=== PATIENT | female | born 1965 | race Hispanic/Latino ===

== ENCOUNTER 2019-01-14 16:53 | Inpatient (IN) | payer OTHER | END 2019-01-19 17:10 | disposition home or self-care (01) | LOC: EDH 16:53 → EDHIP 18:45 → 3DH 20:23 | DX: A41.9 Sepsis, unspecified organism (principal); J18.9 Pneumonia, unspecified organism; J96.00 Acute respiratory failure, unspecified whether with hypoxia or hypercapnia; J96.01 Acute respiratory failure with hypoxia; E87.3 Alkalosis; R09.02 Hypoxemia; E11.65 Type 2 diabetes mellitus with hyperglycemia; Z79.4 Long term (current) use of insulin; I10 Essential (primary) hypertension ==

== ENCOUNTER → 2022-05-20 | Outpatient (CLI) | payer OTHER ==
[~2022-05-20] MED LIST: CHOL500045 PO; LISI20TA24 PO; METF-446 PO; SIMV10TA97 PO
== END | disposition home or self-care (01) ==
LOC: RAH 13:23
PROVIDERS: ATTEND Internal Medicine Cardiovascular Disease
DX: Z13.6 Encounter for screening for cardiovascular disorders (principal); I51.5 Myocardial degeneration
CPT/HCPCS: 75571

== ENCOUNTER → 2022-10-18 | Outpatient (CLI) | payer MEDICARE ==
[~2022-10-18] MED LIST changes: +ACET325T51 PO; +ASPI-1197 PO; +CALC-866 PO; -CHOL500045 PO; +FAMO20TA8 PO; +FURO40TA7 PO; +GUAI5SYR PO; -LISI20TA24 PO; +METO25PO2 MC; +ONDA4TAB10 PO; +POLY17PO4 PO; +POTA-192 PO; +QUET25TA PO; +ROSU20TA31 PO; +SACU1TAB PO; +SERT-438 PO; -SIMV10TA97 PO; +SPIR25TA6 PO
[2022-10-18 13:08] LABS: CREATININE 0.7 mg/dL (0.5-1.5); MAGNESIUM 1.9 mg/dL (1.80-2.40); POTASSIUM 4.2 mmol/L (3.5-5.1)
== END | disposition home or self-care (01) ==
LOC: LAB 08:22
PROVIDERS: ATTEND Internal Medicine Cardiovascular Disease
DX: I11.0 Hypertensive heart disease with heart failure (principal)
CPT/HCPCS: 36415; 80048; 83735; 83880

== ENCOUNTER → 2022-12-29 | Outpatient (CLI) | payer MEDICARE ==
[2022-12-29 12:25] LABS: ALBUMIN 3.4 g/dL (3.5-5.0); CREATININE 0.6 mg/dL (0.5-1.5); POTASSIUM 4.3 mmol/L (3.5-5.1); TOTAL PROTEIN, SERUM 7.2 g/dL (6.0-8.3)
== END | disposition home or self-care (01) ==
LOC: LAB 10:44
PROVIDERS: ATTEND Internal Medicine Cardiovascular Disease
DX: I10 Essential (primary) hypertension (principal)
CPT/HCPCS: 36415; 80053; 80061; 83880

== ENCOUNTER → 2023-05-23 | Outpatient (CLI) | payer MEDICARE ==
[~2023-05-23] MED LIST changes: -ROSU20TA31 PO; +ROSU20TA73 PO
[2023-05-23 12:36] LABS: CREATININE 0.6 mg/dL (0.5-1.5)
== END | disposition home or self-care (01) ==
LOC: LAB 08:43
PROVIDERS: ATTEND Internal Medicine Cardiovascular Disease
DX: I11.0 Hypertensive heart disease with heart failure (principal); I50.32 Chronic diastolic (congestive) heart failure
CPT/HCPCS: 36415; 80048; 83880

== ENCOUNTER → 2023-08-22 | Outpatient (CLI) | payer MEDICARE ==
[2023-08-22 12:37] LABS: ALBUMIN 3.3 g/dL (3.5-5.0); BILIRUBIN,TOTAL 0.6 mg/dL (0.2-1.0); CREATININE 0.6 mg/dL (0.5-1.5); TOTAL PROTEIN, SERUM 7.3 g/dL (6.0-8.3)
== END | disposition home or self-care (01) ==
LOC: LAB 09:37
PROVIDERS: ATTEND Internal Medicine Cardiovascular Disease
DX: I25.810 Atherosclerosis of coronary artery bypass graft(s) without angina pectoris (principal); I10 Essential (primary) hypertension; E78.5 Hyperlipidemia, unspecified; Z79.899 Other long term (current) drug therapy
CPT/HCPCS: 36415; 80053; 80061; 83880

== ENCOUNTER → 2024-03-27 | Outpatient (CLI) | payer OTHER ==
[~2024-03-27] MED LIST changes: +ONDA-243 PO; -ONDA4TAB10 PO
[2024-03-27 12:04] LABS: BASOPHILS # (AUTO) 0.05 K/uL (0.00-0.20); BASOPHILS % (AUTO) 0.6 % (0.0-5.0); EOSINOPHILS # (AUTO) 0.24 K/uL (0.00-0.70); EOSINOPHILS % (AUTO) 2.9 % (0.0-8.0); HEMATOCRIT 41.8 % (36-48); IMMATURE GRANULOCYTE ABSOLUTE 0.02 K/uL (0-1); LYMPHOCYTES # (AUTO) 2.7 K/uL (1.0-4.8); LYMPHOCYTES % (AUTO) 32.6 % (21.0-51.0); MEAN CORPUSCULAR HEMOGLOBIN 31.4 pg (27.0-33.0); MEAN CORPUSCULAR HGB CONC 33.7 g/dL (32.0-36.0); MEAN CORPUSCULAR VOLUME 93.1 fL (79-99); MONOCYTES # (AUTO) 0.6 K/uL (0.1-1.0); MONOCYTES % (AUTO) 7.8 % (3.0-13.0); NEUTROPHILS # (AUTO) 4.6 K/uL (1.8-7.7); NEUTROPHILS % (AUTO) 55.9 % (40.0-77.0); PLATELET COUNT (AUTO) 251 K/uL (130-400); RED BLOOD CELL COUNT(AUTO) 4.49 MIL/uL (4.00-5.50); RED CELL DISTRIBUTION WIDTH 12.6 % (11.0-15.5); WHITE BLOOD COUNT (AUTO) 8.2 K/uL (4.8-10.8)
[2024-03-27 13:16] LABS: BILIRUBIN,TOTAL 0.2 mg/dL (0.2-1.0); CREATININE 0.6 mg/dL (0.5-1.0); MAGNESIUM 1.9 mg/dL (1.80-2.40); POTASSIUM 4.3 mmol/L (3.5-5.1); TOTAL PROTEIN, SERUM 6.9 g/dL (6.0-8.3)
== END | disposition home or self-care (01) ==
LOC: LAB 10:00
PROVIDERS: ATTEND Internal Medicine Cardiovascular Disease
DX: I50.22 Chronic systolic (congestive) heart failure (principal); I65.23 Occlusion and stenosis of bilateral carotid arteries
CPT/HCPCS: 36415; 80053; 80061; 83735; 83880; 85025

== ENCOUNTER → 2024-07-10 | Outpatient (CLI) | payer OTHER ==
[~2024-07-10] MED LIST changes: -GUAI5SYR PO; -ROSU20TA73 PO; +ROSU20TA98 PO
[2024-07-10 12:45] LABS: CREATININE 0.7 mg/dL (0.5-1.0); MAGNESIUM 2.1 mg/dL (1.80-2.40); POTASSIUM 4.4 mmol/L (3.5-5.1)
== END | disposition home or self-care (01) ==
LOC: LAB 09:50
PROVIDERS: ATTEND Internal Medicine Cardiovascular Disease
DX: I25.810 Atherosclerosis of coronary artery bypass graft(s) without angina pectoris (principal); R60.9 Edema, unspecified; G47.33 Obstructive sleep apnea (adult) (pediatric); R20.2 Paresthesia of skin
CPT/HCPCS: 36415; 80048; 83735; 83880

== ENCOUNTER → 2024-08-23 | Outpatient (CLI) | payer OTHER ==
[~2024-08-23] MED LIST changes: +ACET-3859 PO; -ACET325T51 PO
[2024-08-23 12:50] LABS: CREATININE 0.6 mg/dL (0.5-1.0); POTASSIUM 4.6 mmol/L (3.5-5.1)
== END | disposition home or self-care (01) ==
LOC: LAB 09:26
PROVIDERS: ATTEND Internal Medicine Cardiovascular Disease
DX: I25.810 Atherosclerosis of coronary artery bypass graft(s) without angina pectoris (principal); G47.33 Obstructive sleep apnea (adult) (pediatric); R60.9 Edema, unspecified; R20.2 Paresthesia of skin
CPT/HCPCS: 36415; 80048; 83735; 83880

== ENCOUNTER → 2024-11-14 | Outpatient (CLI) | payer OTHER | END | disposition home or self-care (01) | LOC: LAB 09:26 | PROVIDERS: ATTEND Internal Medicine Cardiovascular Disease | DX: E78.2 Mixed hyperlipidemia (principal); I25.10 Atherosclerotic heart disease of native coronary artery without angina pectoris; R60.9 Edema, unspecified; I65.23 Occlusion and stenosis of bilateral carotid arteries | CPT/HCPCS: 36415; 83880 ==

== ENCOUNTER 2024-12-18 10:31 | Day surgery (SDC) | payer OTHER ==
[2024-12-18] VITALS (11 sets, daily range): BP systolic 100–143; BP diastolic 56–72; PULSE 66–78; RESP 16–18; TEMP 97–97.3
[~2024-12-18] VITALS: Ht 154.9 cm; Wt 92.5 kg
[2024-12-18] MEDS: 0.9%NACL 1000ML 1,000 ML IV ONE (11:46)
[2024-12-18] MEDS ORDERED: SACU1TAB PO (12:09)
[2024-12-18] MEDS ORDERED: DOCU100C33 PO (12:09)
[2024-12-18] MEDS ORDERED: VIT1CAPS46 PO (12:09)
[2024-12-18] MEDS ORDERED: EZET10TA48 PO (12:09)
[2024-12-18] MEDS ORDERED: EMPA25TA PO (12:09)
[2024-12-18] MEDS ORDERED: MAGN420T PO (12:09)
[2024-12-18] MEDS ORDERED: SEMA2PEN SQ (12:09)
--- NOTE | 2024-12-18 12:39 | EKG ---
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
[2024-12-18 12:44] LABS: BASOPHILS # (AUTO) 0.03 K/uL (0.00-0.20); BASOPHILS % (AUTO) 0.5 % (0.0-5.0); EOSINOPHILS # (AUTO) 0.08 K/uL (0.00-0.70); EOSINOPHILS % (AUTO) 1.2 % (0.0-8.0); HEMATOCRIT 38.1 % (36-48); IMMATURE GRANULOCYTE ABSOLUTE 0.02 K/uL (0-1); LYMPHOCYTES # (AUTO) 1.9 K/uL (1.0-4.8); LYMPHOCYTES % (AUTO) 29.2 % (21.0-51.0); MEAN CORPUSCULAR HEMOGLOBIN 31.7 pg (27.0-33.0); MEAN CORPUSCULAR HGB CONC 34.4 g/dL (32.0-36.0); MEAN CORPUSCULAR VOLUME 92.3 fL (79-99); MONOCYTES # (AUTO) 0.5 K/uL (0.1-1.0); MONOCYTES % (AUTO) 7.7 % (3.0-13.0); NEUTROPHILS % (AUTO) 61.1 % (40.0-77.0); PLATELET COUNT (AUTO) 245 K/uL (130-400); RED BLOOD CELL COUNT(AUTO) 4.13 MIL/uL (4.00-5.50); RED CELL DISTRIBUTION WIDTH 12.3 % (11.0-15.5); WHITE BLOOD COUNT (AUTO) 6.6 K/uL (4.8-10.8)
[2024-12-18 12:53] LABS: CREATININE 0.8 mg/dL (0.5-1.0); POTASSIUM 3.7 mmol/L (3.5-5.1)
[2024-12-18 12:58] LABS: BILIRUBIN,TOTAL 0.4 mg/dL (0.2-1.0); TOTAL PROTEIN, SERUM 6.7 g/dL (6.0-8.3)
[2024-12-18] MEDS ORDERED: proPOFol 10 MG/ML 20ML VIAL IV ONE (14:05)
[2024-12-18] MEDS ORDERED: LIDOCAINE PF 100MG/5ML (2%) SYRINGE 5ML ONE (14:05)
== END 2024-12-18 15:49 | disposition home or self-care (01) ==
LOC: ENDO 10:31
PROVIDERS: ATTEND Internal Medicine Gastroenterology
DX: Z12.11 Encounter for screening for malignant neoplasm of colon (principal); K29.50 Unspecified chronic gastritis without bleeding; D12.2 Benign neoplasm of ascending colon; K64.0 First degree hemorrhoids; K63.5 Polyp of colon; K21.9 Gastro-esophageal reflux disease without esophagitis; K21.00 Gastro-esophageal reflux disease with esophagitis, without bleeding; E11.9 Type 2 diabetes mellitus without complications; R12 Heartburn; E78.5 Hyperlipidemia, unspecified; I25.10 Atherosclerotic heart disease of native coronary artery without angina pectoris; I11.0 Hypertensive heart disease with heart failure; I50.9 Heart failure, unspecified; Z79.899 Other long term (current) drug therapy; Z79.84 Long term (current) use of oral hypoglycemic drugs; Z86.16 Personal history of COVID-19; Z98.890 Other specified postprocedural states; Z83.3 Family history of diabetes mellitus; Z82.49 Family history of ischemic heart disease and other diseases of the circulatory system; Z83.438 Family history of other disorder of lipoprotein metabolism and other lipidemia; Z82.3 Family history of stroke; Z87.891 Personal history of nicotine dependence
CPT/HCPCS: 45385; 43239; 93005; 80053; 85025; 82948; 36415; 88305; 88312; J7030 ×2; J2003; J2704; A4620; A4215 ×2; A4223; A4222; A4221; A4663; A4606; J3490

== ENCOUNTER 2025-06-18 07:02 | Day surgery (SDC) | payer OTHER ==
[2025-06-14 11:52] LABS: IMMATURE GRANULOCYTE ABSOLUTE 0.03 K/uL (0-1); NUCLEATED RED BLOOD CELLS 0.0 % (0.0-0.19); PLATELET COUNT (AUTO) 289 K/uL (130-400); RED BLOOD CELL COUNT(AUTO) 4.49 MIL/uL (4.00-5.50); RED CELL DISTRIBUTION WIDTH 12.5 % (11.0-15.5); WHITE BLOOD COUNT (AUTO) 7.8 K/uL (4.8-10.8)
[2025-06-14 11:56] LABS: APPEARANCE,URINE CLEAR (CLEAR); GLUCOSE, URINE (UA) >=1000 mg/dL (NEGATIVE); LEUKOCYTE ESTERASE ,URINE NEGATIVE Leu/uL (NEGATIVE); NITRATE,URINE NEGATIVE (NEGATIVE); OCCULT BLOOD,URINE +- (TRACE) (NEGATIVE)
[2025-06-14 11:59] LABS: ADD UA MICROSCOPIC YES
[2025-06-14 11:59] LABS: CREATININE 0.7 mg/dL (0.5-1.0); GLOMERULAR FILTR. RATE CALC 98.0 mL/min (>90); GLUCOSE,RANDOM 206.0 mg/dL (70-105); SODIUM SERUM 137.0 mmol/L (136-145); UREA NITROGEN, BLOOD 26.0 mg/dL (7-18)
[2025-06-14 12:03] LABS: SQUAMOUS EPITHELIAL CELL,UR RARE /HPF (0-2)
[2025-06-14 12:03] LABS: INR <= 0.93 (0.85-1.15)
[2025-06-14 12:12] VITALS: BP 181/86; PULSE 79; RESP 18; TEMP 97.7
--- NOTE | 2025-06-14 12:56 | HMCIMG ---
CHEST 1VW REASON: PRE OP COMPARISON: Prior study from 04/18/2024 is available. FINDINGS: Single view of the chest was obtained. Lungs are clear. Heart is normal in size with median sternotomy. There is uncoiling atherosclerotic change of thoracic aorta.. There is no pulmonary vascular congestion. Mediastinum and bony thorax appear unremarkable. IMPRESSION: 1. Status post median sternotomy 2. No evidence of airspace consolidation or pulmonary venous congestion.
--- NOTE | 2025-06-14 16:04 | EKG ---
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
[2025-06-18] VITALS (7 sets, daily range): BP systolic 119–146; BP diastolic 60–76; PULSE 66–80; RESP 11–15; TEMP 97.2
[~2025-06-18] VITALS: Ht 154.9 cm; Wt 91.8 kg
[~2025-06-18 07:02] MED LIST changes: -ACET-3859 PO; -ASPI-1197 PO; -CALC-866 PO; +CALCIUM PLUS VIT D PO; +EMPA25TA PO; +EVOL140S2 SQ; +EZET10TA80 PO; -FAMO20TA8 PO; +FURO40TA5 PO; -FURO40TA7 PO; +GABA-529 PO; +MAGN400T51 PO; +METO-408 PO; -METO25PO2 MC; -ONDA-243 PO; -POLY17PO4 PO; -POTA-192 PO; -QUET25TA PO; +SEMA2PEN SQ; +SENN-304 PO; -SERT-438 PO; +SERT-439 PO; +cinnamon PO; +garlique PO
[2025-06-18] MEDS: 0.9%NACL 1000ML 1,000 ML IV SCH (08:12)
[2025-06-18] MEDS ORDERED: HEParin-NS 1,000 UNIT/500 ML 1,000 ML IV ONE (08:45)
[2025-06-18] MEDS ORDERED: SODIUM BICARB 50MEQ 50ML VIAL 50 ML ONE (08:45)
[2025-06-18] MEDS ORDERED: NITROGLYCERIN 50MG VIAL ONE (08:45)
[2025-06-18] MEDS ORDERED: IOHEXOL-350 50ML VIAL IV ONE (08:45)
[2025-06-18] MEDS ORDERED: IOHEXOL 350 MG/ML 100ML INFUS..BTL IV ONE (08:45)
[2025-06-18] MEDS ORDERED: LIDOCAINE HCL 400MG/20ML VIAL ONE (08:45)
[2025-06-18] MEDS ORDERED: MIDAZOLAM HCL 1 MG/ML 2ML VIAL ONE (08:55)
[2025-06-18] MEDS ORDERED: GLUCAGON 1MG KIT 1 MG ML IM PRN (10:00)
[2025-06-18] MEDS ORDERED: DEXTROSE 50%-WATER 50 ML DISP.SYRIN IV PRN (10:00)
--- NOTE | 2025-06-18 10:26 | PRN ---
LEFT HEART CATHETERIZATION, LEFT VENTRICULAR CINE ANGIOGRAM, CORONARY ARTERIOGRAM, SAPHENOUS VEIN GRAFT ANGIOGRAM, INTERNAL MAMMARY ANGIOGRAM INDICATION: HIGH-RISK NUCLEAR STRESS TEST WITH ANGINA AND HISTORY OF CORONARY BYPASS TECHNIQUE: The patient was brought to the lab in a fasting state after informed consent and sedated with 1 mg Versed and 50 mcg fentanyl. Under local anesthesia with 1% lidocaine using micropuncture technique with fluoroscopic and ultrasound guidance a right common femoral artery was punctured anteriorly and a six [place] sheath was inserted. Left heart catheterization was carried out with a six [place] angled pigtail and pressures were measured, then left ventricular cine angiography was performed in OSWALD projection . A pullback recording was obtained and an exchange was made for six [place] 4 cm left Bertha which was used to engage the left main coronary and obtain left coronary angiograms in multiple projections. An exchange was made for a six [place] 4 cm right Bertha which was used to engage the right coronary and obtain right coronary angiograms in multiple projections, then the vein grafts were engaged and angiography demonstrated them all to be occluded. The left subclavian was then engaged and with a exchange length J wire we exchanged for a six [place] INT with which we engaged the internal mammary and obtained internal mammary angiograms in multiple projections. At the conclusion of the procedure Perclose closure was accomplished with excellent hemostasis and no complications. Results: Hemodynamics: LVEDP was 18 before angiography in 20 after. LV systolic pressure was 153 and a ortic root pressure was 150/65, mean 100. Ventriculography: Left ventricular cine angiography demonstrated mild global hypokinesia which was more apparent in the mid inferior wall. The mitral valve was competent. The EF is 40% by planimetry. Angiography: The right coronary supplies the posterior descending and a posterolateral branch and is notable for a calcified segmental 95% stenosis before the 1st right ventricular marginal. At the acute margin there is an additional segmental calcified 90% stenosis which compromises the PDA and posterolateral as well as the AV pradip branch. The vein graft to the right coronary is occluded. The left main is free of high-grade disease. The left anterior descending is notable for calcified 60% proximal stenosis which does not appear significantly obstructive. The 1st diagonal is narrowed by 70% at its origin in his only about a mm in diameter; previous vein graft to that vessel is not apparent on angiography but a stubbed this identified on the aorta. In the midportion of the LAD there is segmental calcified 80% stenosis proximal to the insertion of the internal mammary. The internal mammary supplies the mid and distal LAD and is free of disease. The circumflex supplies a tiny 1st obtuse marginal then a large 2nd obtuse marginal that bifurcates as it courses over the lateral wall. The anterior branch of that 2nd obtuse marginal is notable for calcified eccentric disease in the ostium of the more posterior branch of the 2nd obtuse marginal is calcified and narrowed by 90%. In the midportion of that vessel there is 95% stenosis were as there appears to have been a previous vein graft insertion. Distally the circumflex supplies two small posterolateral branches and there was diffuse calcified segmental disease that spans from the common circumflex into both of those distal branches, which are small in diameter. Conclusions: Severe three-vessel coronary disease with all three saphenous vein grafts occluded. Internal mammary is patent. Mild systolic and diastolic heart failure. JACKIE NAM MD Jun 18, 2025 10:26
--- NOTE | 2025-06-18 12:11 | NUR ---
Full and complete discharge instructions given to Patient and Family both verbally and in writing. Explained Angiogram procedure precautions and follow up. Right groin site clean dry and intact. No evidence of bleeding, bruising or hematoma. Pedal pulses intact to BLE's. All questions answered. PIV removed with catheter tip intact. Son at bedside appearing supportive. Addendum: 06/18/25 at 1249 by SAMANTHA PAREDES RN RN Discharged home. W/C to POV with Son.
== END 2025-06-18 12:50 | disposition home or self-care (01) ==
LOC: DAH 07:02
PROVIDERS: ATTEND Internal Medicine Cardiovascular Disease
DX: R94.39 Abnormal result of other cardiovascular function study (principal); I25.118 Atherosclerotic heart disease of native coronary artery with other forms of angina pectoris; I11.0 Hypertensive heart disease with heart failure; I50.32 Chronic diastolic (congestive) heart failure; E78.5 Hyperlipidemia, unspecified; E11.9 Type 2 diabetes mellitus without complications; Z79.84 Long term (current) use of oral hypoglycemic drugs; Z79.899 Other long term (current) drug therapy; Z98.890 Other specified postprocedural states
CPT/HCPCS: 80048; 83880; 85025; 85610; 85730; 81001; 36415; 71045; 93005; 93459; 99156; 99157; 82948 ×2; C1769; C1894 ×2; C1760; Q9965 ×2; J3010; J3490 ×3; J2250; J1644; Q9967 ×2; A4215; A4222; A4221; A4663; A4216; A4606; A4223 ×3

== ENCOUNTER 2025-07-08 16:31 | Observation (INO) | payer OTHER ==
[~2025-07-08] VITALS: Ht 154.9 cm; Wt 90.6 kg
[~2025-07-08 16:31] MED LIST changes: +ASPI-1443 PO; +CETI10TA87 PO; +FLUT16H NASAL; +PRAS10TA9 PO
--- NOTE | 2025-07-08 16:42 | NUR ---
TRAUMA LEVEL 2 ACTIVATED. SEE PAPER DOCUMENTATION
[2025-07-08 17:11] LABS: IMMATURE GRANULOCYTE ABSOLUTE 0.03 K/uL (0-1); NUCLEATED RED BLOOD CELLS 0.0 % (0.0-0.19); PLATELET COUNT (AUTO) 226 K/uL (130-400); RED BLOOD CELL COUNT(AUTO) 4.07 MIL/uL (4.00-5.50); RED CELL DISTRIBUTION WIDTH 12.8 % (11.0-15.5); WHITE BLOOD COUNT (AUTO) 7.9 K/uL (4.8-10.8)
--- NOTE | 2025-07-08 17:16 | HMCIMG ---
EXAM: CT Head Without IV contrast. CLINICAL HISTORY: FALL ON THINNERS TECHNIQUE: Axial computed tomography images of the head/brain without intravenous contrast. COMPARISON: None provided. FINDINGS: BRAIN: No evidence of acute hemorrhage. No mass lesion. No CT evidence for acute territorial infarct. No midline shift or extra-axial collections. VENTRICLES: No hydrocephalus. ORBITS: The orbits are unremarkable. SINUSES AND MASTOIDS: The paranasal sinuses and mastoid air cells are clear. BONES: No fracture. SOFT TISSUES: Unremarkable. IMPRESSION: No acute intracranial abnormality. /[place]
[2025-07-08 17:19] LABS: CREATININE 0.7 mg/dL (0.5-1.0); GLOMERULAR FILTR. RATE CALC 98.0 mL/min (>90); GLUCOSE,RANDOM 139.0 mg/dL (70-105); SODIUM SERUM 141.0 mmol/L (136-145); UREA NITROGEN, BLOOD 28.0 mg/dL (7-18)
--- NOTE | 2025-07-08 17:19 | HMCIMG ---
EXAM: CT Cervical Spine Without IV contrast. CLINICAL HISTORY: FALL ON THINNERS. TECHNIQUE: Axial computed tomography images of the cervical spine without intravenous contrast. Sagittal and coronal reformatted images were generated. COMPARISON: None provided. FINDINGS: ALIGNMENT: Bony alignment is anatomic. DEGENERATIVE CHANGES: Mild multilevel degenerative changes. SOFT TISSUES: The prevertebral soft tissues are within normal limits. BONES: No acute fracture or aggressive appearing osseous lesion. IMPRESSION: No acute cervical spine abnormality. Mild degenerative change. /[place]
[2025-07-08 17:28] LABS: ASPARTATE AMINOTRANSFERASE 19.0 U/L (10-37); TOTAL PROTEIN, SERUM 7.3 g/dL (6.0-8.3)
[2025-07-08 17:47] LABS: INR 0.94 (0.85-1.15)
--- NOTE | 2025-07-08 18:22 | EKG ---
[facility] Test Date: 2025-07-08 Test Time: 17:00:58 Pat Name: JORDAN MORAN Department: EDH Room: ED Gender: F Hand Tier: [id number] : 1965 Requested By: ANALI OVALLE Order Number: [id number] Reading MD: Dionne Gonsalez Measurements Intervals [place] Rate: 76 P: 42 [place]: 194 QRS: -15 QRSD: 105 T: 145 QT: 416 QTc: 467 Interpretive Statements Sinus rhythm LVH with secondary repolarization abnormality Inferior infarct, old Compared to ECG 07/02/2025 12:35:40 Left ventricular hypertrophy now present Early repolarization now present T-wave abnormality no longer present Myocardial infarct finding still present Electronically Signed On 07-09-2025 16:11:30 CDT by Dionne Gonsalez Please click the below link to view image of tracing.
--- NOTE | 2025-07-08 18:51 | ERN ---
ED Note History of Present Illness Stated Complaint: VASOVAGAL, NEAR SYNCOPE ,POST OP ANGIO Chief Complaint: Mechanical Fall Time Seen by MD: 16:51 Dictation: 59-year-old female with syncopal episode while in the bathroom hit her head, patient had recent angiogram and was at the hard doctor's office in clinic to get evaluated was sent over to the ER Allergies: Coded Allergies: No Known Allergies (Verified Allergy, Unknown, 01/14/19) Home Meds Reported Medications Fluticasone Propionate (Flonase Nasal Rossie) 50 Mcg/Actuation Rossie, 1 SPRAY NASAL AD PRN for CONGESTION, SPRAY 07/02/25 Cetirizine HCl (Cetirizine HCl) 10 Mg Tab.chew, 10 MG PO AM, TAB.CHEW 07/02/25 Prasugrel HCl (Prasugrel HCl) 10 Mg Tablet, 10 MG PO AM, TAB BEGIN ON 07/05/2025T 9:00AM 07/02/25 Aspirin (Aspirin EC) 81 Mg Tablet.dr, 81 MG PO AM, TAB 07/02/25 Evolocumab (Repatha Syringe) 140 Mg/Ml Syringe, 140 MG SQ T1GMMTL, SYRINGE 06/14/25 Gabapentin (Gabapentin) 100 Mg Capsule, 100 MG PO HS, CAP 06/14/25 Metoprolol Succinate (Metoprolol Succinate) 25 Mg Tab.er.24h, 25 MG PO AM, TAB 06/14/25 Sertraline HCl (Sertraline HCl) 50 Mg Tablet, 50 MG PO AM, TAB 06/14/25 [calcium plus vit d] No Conflict Check, 1 TAB PO BID 06/14/25 [cinnamon] No Conflict Check, 2000 MG PO BID 06/14/25 Magnesium Oxide (Magnesium Oxide) 400 Mg Magnesium Tablet, 400 MG PO AM, TAB 06/14/25 [garlique] No Conflict Check, 1 TAB PO AM 06/14/25 Furosemide (Furosemide) 40 Mg Tablet, 40 MG PO AM, TAB 06/14/25 Sennosides/Docusate Sodium (Stool Softener-Stimulant Lax) 8.6 Mg-50 Mg Tablet, 1 EACH PO HS, TAB 06/14/25 Empagliflozin (Jardiance) 25 Mg Tablet, 25 MG PO DAILY, TAB 12/18/24 Sacubitril/Valsartan (Entresto 24 mg-26 mg Tablet) 24 Mg-26 Mg Tablet, 1 TAB PO BID for 30 Days, #60 TAB 0 Refills 12/18/24 Spironolactone (Spironolactone) 25 Mg Tablet, 25 MG PO DAILY, TAB 12/18/24 Ezetimibe (Ezetimibe) 10 Mg Tablet, 10 MG PO DAILY, TAB 12/18/24 Semaglutide (Ozempic) 2 Mg/0.75 Ml (8 Mg/3 Ml) Pen.injctr, 1 MG SQ QWEEK for 30 Days, #3 ML 0 Refills 12/18/24 Rosuvastatin Calcium (Rosuvastatin Calcium) 20 Mg Tablet, 20 MG PO HS, TAB 09/30/22 Metformin HCl (Metformin HCl) 1,000 Mg Tablet, 1000 MG PO BIDAC, TAB 09/30/22 Past Medical History Past Medical History: CAD, CHF, Depression, Diabetes-Type II, High Cholesterol, Heart Disease, Hypertension Additional Past Medical Hx: PLEURAL EFFUSION, SLEEP APNEA, PULMONARY HYPERTENSION, MORBID OBESITY Surgical History: CABG, Surgical History Other: UMBILICAL HERNIA, LEFT HIP Review of System Dictation Constitutional: Negative for fever,chills, and weight loss Eyes: Negative for injury, pain,redness, and discharge ENT: Negative for injury,pain or swelling Cardiovascular: Negative for chest pain, palpitations, and edema Respiratory: Negative for shortness of breath, cough, and wheezing, Abdomen/GI: Negative for abdominal pain, nausea, vomiting, diarrhea, and constipation Back: Negative for injury and pain : Negative for injury, bleeding and discharge MS/Extremity: Negative for injury and deformity Skin: Negative for rash, and discoloration Neuro: Per HPI Initial Vital Sign VS Vital Signs Date Time Temp Pulse Resp B/P (MAP) Pulse Ox O2 Delivery O2 Flow Rate FiO2 07/08/25 16:45 98.2 76 16 123/59 98 Room Air 0 Physical Exam Dictation General: awake, alert, NAD Head/Face: Normocephalic, atraumatic Eyes: PERRL, EOMI, vision at baseline ENT: oral cavity clear, TMs clear, no signs of infection Neck: Trachea midline, supple, no nuchal rigidity Cardiovascular: RRR, normal S1/S2, No MRGs, no JVD Respiratory: CTAB, no respiratory distress, No rales or wheezes Abdomen: Soft, non-tender, non-distended, normal bowel sounds, no guarding or rebound. Skin: Warm, dry, normal turgor, no rash MS/Extremity: Pulses equal, no cyanosis, neurovascular intact, FROM Neuro: COAx4, GCS 15, strength 5/5, CN 2-12 intact, normal cerebellar exam, normal gait, Psych: Normal behavior, mood, and affect normal Results (Laboratory/Radiology) Laboratory/Radiology Laboratory Tests Test 07/08/25 17:05 White Blood Count 7.9 K/uL (4.8-10.8) Red Blood Count 4.07 MIL/uL (4.00-5.50) Hemoglobin 13.0 g/dL (12.0-16.0) Hematocrit 37.9 % (36-48) Mean Corpuscular Volume 93.1 fL (79-99) Mean Corpuscular Hemoglobin 31.9 pg (27.0-33.0) Mean Corpuscular Hemoglobin Concent 34.3 g/dL (32.0-36.0) Red Cell Distribution Width 12.8 % (11.0-15.5) Platelet Count 226 K/uL (130-400) Mean Platelet Volume 10.2 fL (7.5-10.5) Immature Granulocyte % (Auto) 0.4 % (0-1) Neutrophils (%) (Auto) 68.7 % (40.0-77.0) Lymphocytes (%) (Auto) 19.5 % (21.0-51.0) L Monocytes (%) (Auto) 9.5 % (3.0-13.0) Eosinophils (%) (Auto) 1.5 % (0.0-8.0) Basophils (%) (Auto) 0.4 % (0.0-5.0) Neutrophils # (Auto) 5.4 K/uL (1.8-7.7) Lymphocytes # (Auto) 1.5 K/uL (1.0-4.8) Monocytes # (Auto) 0.8 K/uL (0.1-1.0) Eosinophils # (Auto) 0.12 K/uL (0.00-0.70) Basophils # (Auto) 0.03 K/uL (0.00-0.20) Absolute Immature Granulocyte (auto 0.03 K/uL (0-1) Nucleated Red Blood Cells 0.0 % (0.0-0.19) Prothrombin Time 10.0 SEC (9.6-11.6) Prothromb Time International Ratio 0.94 (0.85-1.15) Activated Partial Thromboplast Time 26.5 SEC (26.3-35.5) Sodium Level 141 mmol/L (136-145) Potassium Level 4.8 mmol/L (3.5-5.1) Chloride Level 104 mmol/L (101-111) Carbon Dioxide Level 29 mmol/L (21-32) Blood Urea Nitrogen 28 mg/dL (7-18) H Creatinine 0.7 mg/dL (0.5-1.0) Glomerular Filtration Rate Calc 98 mL/min (>90) Random Glucose 139 mg/dL (70-105) H Total Calcium 9.4 mg/dL (8.5-10.1) Total Bilirubin 0.4 mg/dL (0.2-1.0) Direct Bilirubin 0.1 mg/dL (0.0-0.3) Aspartate Amino Transf (AST/SGOT) 19 U/L (10-37) Alanine Aminotransferase (ALT/SGPT) 20 U/L (12-78) Alkaline Phosphatase 68 U/L (50-136) Troponin I High Sensitivity 43 ng/L (4-50) B-Type Natriuretic Peptide 141 pg/mL (0-100) H Total Protein 7.3 g/dL (6.0-8.3) Albumin 3.5 g/dL (3.5-5.0) Labs Reviewed?: Yes EKG Comment: Heart rate 76 normal sinus rhythm normal intervals no STEMI ED Course ED Course Orders Procedure Category Date Status Time Ct Head/Brain W/O CT 07/08/25 Resulted Contrast 16:46 Ct Cervical Spine W/O CT 07/08/25 Resulted Contrast 16:50 B-Type Natriuretic LAB 07/08/25 Complete Peptide 16:54 12 Lead Ekg Tracing- EKG 07/08/25 Complete Technical 16:54 Basic Metabolic Panel LAB 07/08/25 Complete 16:54 Cbc With Differential LAB 07/08/25 Complete 16:54 Hepatic Function Panel LAB 07/08/25 Complete 16:54 Pt And Ptt LAB 07/08/25 Complete 16:54 Troponin I High LAB 07/08/25 Complete Sensitivity 16:54 Chest 1vw RAD 07/08/25 Taken 16:54 Vital Signs Date Time Temp Pulse Resp B/P (MAP) Pulse Ox O2 Delivery O2 Flow Rate FiO2 07/08/25 16:45 98.2 76 16 123/59 98 Room Air 0 Medical Decision Making MDM MDM: Differential diagnosis: Rationale: Tests considered and ordered secondary to shared decision making include: labs, ECG and radiology Previous outside records reviewed: Old ER visits. Risk of complication and/or morbidity or mortality of patient management: None Medications-Per medication reconciliation Need for hospitalization: Patient does meet criteria for hospitalization. Need for emergency major/minor surgery: No There are no social concerns with this patient. Prescription drug management Prescriptions will include symptomatic care Patient's prior external medical records from other ER visits were reviewed by me as indicated. Prior testing and results from previous visits were reviewed. Prior tests were taken into account with medical decision making and resource utilization, independent historian/historians were used to obtain complete medical history. I independently interpreted the test that were performed, results were reviewed by me and considered findings on radiology if ordered. Medical management and examination interpretation discussions were had by me with other qualified healthcare professionals as indicated for the patient's care. 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
--- NOTE | 2025-07-08 18:53 | HMCIMG ---
EXAM: XR Chest, 1 View. CLINICAL HISTORY: 59-year-old female syncope. COMPARISON: XR Chest 07/02/25 13:09 FINDINGS: LUNGS: The lungs are clear. No consolidation. PLEURAL SPACES: No pleural effusion or pneumothorax. HEART: The heart size is normal. BONES: Sternotomy wires are present. No acute osseous abnormality. IMPRESSION: 1. No acute findings. 2. Similar to prior XR Chest 07/02/25 13:09 /[place]
--- NOTE | 2025-07-08 19:49 | HP ---
[facility] HISTORY AND PHYSICAL Date of Service: Jul 08, 2025 Time of Service: 19:49 HISTORY OF PRESENT ILLNESS: [ ] REVIEW OF SYSTEMS CONSTITUTIONAL: Denies fevers, chills, or night sweats. No unintentional weight loss reported. NEUROLOGICAL: Denies headache, amaurosis fugax, motor weakness, sensory deficit, vertigo/spinning sensation, gait abnormalities, or tremors. ENT: No hearing loss, otalgia, otorrhea, rhinitis, rhinorrhea, hoarseness, or sore throat. CARDIOVASCULAR: Denies any exertional angina, dyspnea on exertion, orthopnea, paroxysmal nocturnal dyspnea, palpitations, life-threatening arrhythmias, claudication. PULMONARY: Denies any shortness of breath, cough, phlegm/sputum, hemoptysis, pleuritic chest pain. SLEEP: Denies morning headaches, daytime somnolence or napping. Denies difficulty falling asleep, staying asleep, waking from sleep. Denies knowledge of snoring. GASTROINTESTINAL: Denies any type of dysphagia to either liquids or solids. Denies nausea, vomiting, pyrosis, early satiety, abdominal pain, diarrhea, constipation, or changes in stool consistency or caliber. Denies coffee-ground emesis, hematemesis, hematochezia, or melanotic stools. GENITOURINARY: Denies frequency, urgency, nocturia, hematuria or incontinence (Storage/Irritative symptoms.) Low urinary stream, straining to void, urinary intermittency or hesitancy, splitting of the voiding stream, terminal dribbling. ENDOCRINOLOGIC: Denies polyuria, polydipsia, polyphagia or heat/cold intolerances. HEMATOLOGIC: Denies thrombophilia/previous clots, or coagulopathy/bleeding disorders. ONCOLOGIC: Denies personal history of malignancy. DERMATOLOGIC: Denies rashes or pruritus. PSYCHIATRIC: Denies any suicidal or homicidal ideation. Denies hallucinations. PAST MEDICAL HISTORY: [ ] PAST SURGICAL HISTORY: [ ] PAST SOCIAL HISTORY: [ ] FAMILY HISTORY: [ ] Coded Allergies: No Known Allergies (Verified Allergy, Unknown, 01/14/19) PHYSICAL EXAM GENERAL APPEARANCE: The patient is awake, alert, and oriented, in no acute cardiopulmonary distress. NEUROLOGICAL: Cranial nerves II-XII grossly intact. Motor is 5/5 in bilateral upper and lower extremities proximal to distal. No sensory deficits. HEENT: Face is symmetric. Pupils are equal and reactive. Extraocular movements are intact. NECK: Supple. No JVD. No thyromegaly. No submental, submandibular, pre- /postauricular, occipital or supraclavicular lymphadenopathy. CHEST: Normal chest expansion. No Telemetry. LUNGS: Absence of any rales, rhonchi or any wheezing. CARDIOVASCULAR: Regular. S1 and S2 normal. No appreciable rubs, murmurs or gallops. ABDOMEN: Soft, nontender, and nondistended. There is no rebound, voluntary guarding, or rigidity. : Deferred. No Perez. EXTREMITIES: Non-edematous and not cyanotic. No clubbing. Good capillary refill. SKIN: No skin breakdown. Vital Sign (Last 24 Hours) 07/08/25 19:11 Temp 98.1 Pulse 78 Resp 18 B/P (MAP) 127/56 Pulse Ox 98 O2 Delivery Room Air* O2 Flow Rate 0 FiO2 21 LABS: Laboratory: Test 07/08/25 17:05 Range/Units White Blood Count 7.9 4.8-10.8 K/uL Red Blood Count 4.07 4.00-5.50 MIL/uL Hemoglobin 13.0 12.0-16.0 g/dL Hematocrit 37.9 36-48 % Mean Corpuscular Volume 93.1 79-99 fL Mean Corpuscular Hemoglobin 31.9 27.0-33.0 pg Mean Corpuscular Hemoglobin Concent 34.3 32.0-36.0 g/dL Red Cell Distribution Width 12.8 11.0-15.5 % Platelet Count 226 130-400 K/uL Mean Platelet Volume 10.2 7.5-10.5 fL Immature Granulocyte % (Auto) 0.4 0-1 % Neutrophils (%) (Auto) 68.7 40.0-77.0 % Lymphocytes (%) (Auto) 19.5 L 21.0-51.0 % Monocytes (%) (Auto) 9.5 3.0-13.0 % Eosinophils (%) (Auto) 1.5 0.0-8.0 % Basophils (%) (Auto) 0.4 0.0-5.0 % Neutrophils # (Auto) 5.4 1.8-7.7 K/uL Lymphocytes # (Auto) 1.5 1.0-4.8 K/uL Monocytes # (Auto) 0.8 0.1-1.0 K/uL Eosinophils # (Auto) 0.12 0.00-0.70 K/uL Basophils # (Auto) 0.03 0.00-0.20 K/uL Absolute Immature Granulocyte (auto 0.03 0-1 K/uL Nucleated Red Blood Cells 0.0 0.0-0.19 % Prothrombin Time 10.0 9.6-11.6 SEC Prothromb Time International Ratio 0.94 0.85-1.15 Activated Partial Thromboplast Time 26.5 26.3-35.5 SEC Sodium Level 141 136-145 mmol/L Potassium Level 4.8 3.5-5.1 mmol/L Chloride Level 104 101-111 mmol/L Carbon Dioxide Level 29 21-32 mmol/L Blood Urea Nitrogen 28 H 7-18 mg/dL Creatinine 0.7 0.5-1.0 mg/dL Glomerular Filtration Rate Calc 98 >90 mL/min Random Glucose 139 H 70-105 mg/dL Total Calcium 9.4 8.5-10.1 mg/dL Total Bilirubin 0.4 0.2-1.0 mg/dL Direct Bilirubin 0.1 0.0-0.3 mg/dL Aspartate Amino Transf (AST/SGOT) 19 10-37 U/L Alanine Aminotransferase (ALT/SGPT) 20 12-78 U/L Alkaline Phosphatase 68 50-136 U/L Troponin I High Sensitivity 43 4-50 ng/L B-Type Natriuretic Peptide 141 H 0-100 pg/mL Total Protein 7.3 6.0-8.3 g/dL Albumin 3.5 3.5-5.0 g/dL DIAGNOSTICS / RADIOLOGY: [ ] ASSESSMENT: [ ] PLAN: [ ] LUPILLO SEWELL [facility] Jul 08, 2025 19:49
[2025-07-08] MEDS ORDERED: LACTULOSE 20 GM/30 ML UDCUP PO PRN (20:30)
--- NOTE | 2025-07-08 22:21 | HP ---
[facility] HISTORY & PHYSICAL Date Patient Seen: Jul 08, 2025 Time of Visit: 22:21 Supervising Physician: Dr. Eisenberg Primary Care Physician: Dr. Mateo Billingsley Outpatient Specialists: Inpatient Consults: Cardiology PROBLEM LIST: Dizziness/imbalance, concern for cardiac etiology, s/p angiogram Class three angina with positive stress test and failed vein graft s/p coronary shock way PTCA and drug eluting stent implant done on 07/04/[address] Iniguez LVEF is 50-55%, Stage II, diastolic dysfunction, the right atrium is mildly dilated, RVSP 48.0mmHg.Per echo on 09/24/2022 Near syncopal episode Rhinitis Left ear congestion Acute kidney injury, BUN 28 Diabetes mellitus with hyperglycemia Elevated BNP Obese Diabetes mellitus with hyperglycemia Uncontrolled hypertension Gastritis CAD s/p CABG September 21, 2022 HPI: Ms. Car is a 59-year-old female with a history of CAD, CHF, pleural effusion, sleep apnea, pulmonary, morbid obesity, depression, diabetes-type II, high cholesterol, heart disease and hypertension. The ED provider reported the patient presented [place] [facility] [place] evaluation of syncopal episode while in the bathroom and that she hit her head. The patient reported that prior to going to going to the restroom she was feeling dizzy and unbalanced. She stated that she looked at the floor and it looked like it was "fluttering" "like waves". She reports that she saw her physician a few days ago for evaluation of left ear itching. She reported that her doctor informed her that her inner ear was red and had an infection therefore gave her some ear drops. She stated that she has been having nasal congestion and was using a nose spray which was changed to Flomax on Tuesday. She reported her left ear still feels muffled/pressure like how it feels when on an airplane. The patient had recent angiogram and was at the [facility] accompanying her for his appointment. The patient stated that the retail aide evaluated her after the incident and advised to get seen in the ER. VS: HR 76 bmp, RR 16 bmp, BP 123/59, 98% RA, 98.2 F. Labs: Hematology: WBC WNL, Chemistry: BUN 28, Random Glucose: 139, B-Natriuretic Peptide 141, Chest XRay: 1. No acute findings. 2. Similar to prior XR Chest 07/02/25 13:09, Cervical Spine CT: No acute cervical spine abnormality. Mild degenerative change. Head CT : No acute intracranial abnormality. ED provider report patient had a recent angiogram and will like patient be admitted for cardiac workup. ED provider requested patient be admitted to the hospital with a diagnosis of syncope and collapse and cardiac syncope. I assessed the patient at bedside in ED 13. Significant other at bedside. The patient's breathing was even, unlabored, in no distress. The patient reported that she did not faint. She stated that she was very dizzy and she fell. I informed the patient and significant other of labs, diagnostics, and plan of care. She verbalized understanding and is in agreement with the plan. Plan and assessment are listed below. PAST MEDICAL HX: see above PAST SURGICAL HX: CABG, , umbilical hernia and left hip surgery SOCIAL HISTORY: No tobacco, ETOH, or illicit drug use Coded Allergies: No Known Allergies (Verified Allergy, Unknown, 01/14/19) REVIEW OF SYSTEMS: 12 point ROS reviewed with patient. Pertinent positives mentioned above. Otherwise negative. PHYSICAL EXAM: GENERAL: Alert, awake oriented x 3 HEENT: EOMI, Sclera non icteric, moist mucosa NECK: Supple, no JVD, trachea midline LUNGS: Clear breath sounds bilaterally. No wheezes HEART: Regular rate and rhythm. Normal S1 and S2, without murmurs ABD: Abdomen soft, nontender. Bowel sounds present. Obese EXT: No clubbing cyanosis or edema NEURO: Alert and oriented to person, follows commands Vital Signs (last 8hr) Date Time Temp Pulse Resp B/P (MAP) Pulse Ox O2 Delivery O2 Flow Rate FiO2 07/08/25 20:10 73 17 133/54 96 Room Air* 0 21 07/08/25 19:11 98.1 78 18 127/56 98 Room Air* 0 21 07/08/25 16:45 98.2 76 16 123/59 98 Room Air 0 LABS: Hematology Labs: Test 07/08/25 17:05 Range/Units White Blood Count 7.9 4.8-10.8 K/uL Red Blood Count 4.07 4.00-5.50 MIL/uL Hemoglobin 13.0 12.0-16.0 g/dL Hematocrit 37.9 36-48 % Mean Corpuscular Volume 93.1 79-99 fL Mean Corpuscular Hemoglobin 31.9 27.0-33.0 pg Mean Corpuscular Hemoglobin Concent 34.3 32.0-36.0 g/dL Red Cell Distribution Width 12.8 11.0-15.5 % Platelet Count 226 130-400 K/uL Mean Platelet Volume 10.2 7.5-10.5 fL Immature Granulocyte % (Auto) 0.4 0-1 % Neutrophils (%) (Auto) 68.7 40.0-77.0 % Lymphocytes (%) (Auto) 19.5 L 21.0-51.0 % Monocytes (%) (Auto) 9.5 3.0-13.0 % Eosinophils (%) (Auto) 1.5 0.0-8.0 % Basophils (%) (Auto) 0.4 0.0-5.0 % Neutrophils # (Auto) 5.4 1.8-7.7 K/uL Lymphocytes # (Auto) 1.5 1.0-4.8 K/uL Monocytes # (Auto) 0.8 0.1-1.0 K/uL Eosinophils # (Auto) 0.12 0.00-0.70 K/uL Basophils # (Auto) 0.03 0.00-0.20 K/uL Absolute Immature Granulocyte (auto 0.03 0-1 K/uL Nucleated Red Blood Cells 0.0 0.0-0.19 % Chemistry Labs: Test 07/08/25 22:08 07/08/25 17:05 Range/Units Whole Blood Glucose 213 H 70-110 MG/DL Sodium Level 141 136-145 mmol/L Potassium Level 4.8 3.5-5.1 mmol/L Chloride Level 104 101-111 mmol/L Carbon Dioxide Level 29 21-32 mmol/L Blood Urea Nitrogen 28 H 7-18 mg/dL Creatinine 0.7 0.5-1.0 mg/dL Glomerular Filtration Rate Calc 98 >90 mL/min Random Glucose 139 H 70-105 mg/dL Total Calcium 9.4 8.5-10.1 mg/dL Total Bilirubin 0.4 0.2-1.0 mg/dL Direct Bilirubin 0.1 0.0-0.3 mg/dL Aspartate Amino Transf (AST/SGOT) 19 10-37 U/L Alanine Aminotransferase (ALT/SGPT) 20 12-78 U/L Alkaline Phosphatase 68 50-136 U/L Troponin I High Sensitivity 43 4-50 ng/L B-Type Natriuretic Peptide 141 H 0-100 pg/mL Total Protein 7.3 6.0-8.3 g/dL Albumin 3.5 3.5-5.0 g/dL Coagulation Labs: Test 07/08/25 17:05 Range/Units Prothrombin Time 10.0 9.6-11.6 SEC Prothromb Time International Ratio 0.94 0.85-1.15 Activated Partial Thromboplast Time 26.5 26.3-35.5 SEC DIAGNOSTICS / RADIOLOGY RESULTS: [ ] PLAN Admit to medical floor with telemetry monitoring. Meclizine 25 mg p.o. b.i.d. Zyrtec 10 mg p.o. daily. Reconciled/started home medications: Aspirin, Ezetimibe, Lasix, gabapentin, magnesium, metoprolol, prasugrel, rosuvastatin, Entresto, sertraline, spironolactone. Obtain orthostatic vital signs. Obtain carotid and echo. Consult Cardiology reason angiogram, dizziness, sent by Cardiology. P.r.n. medications for pain management, nausea, vomiting, hypertension, fever, constipation Glucometer checks a.c. and HS with insulin regular sliding scale per protocol. Blood pressure checks every 4 hours and as needed. Monitor renal and liver function. Monitor electrolytes and treat accordingly. A.m. labs. GI and DVT prophylaxis. Further orders/plan per hospitalization course. NEURO: Minimize central acting medications as possible. Maintain fall precautions, adequate lighting during the day PULMONARY: Supplemental 02 as needed. Maintain aspiration precautions at all times CARDIOVASCULAR: Follow hemodynamics. Vital signs per facility protocol GI & NUTRITION: Continue with nutritional support. Continue stool softeners and laxatives as needed. KIDNEYS & ELECTROLYTES: Strict monitoring of intake, output and overall fluid balance. Avoid nephrotoxic medications to the extent possible. Medications to be dosed according to renal function. Monitor electrolytes and replace as needed ENDOCRINE: Maintain blood glucose between 100-180 at all times. Hypoglycemia protocol in place INFECTIOUS DISEASE: Trend temperature, WBC and procalcitonin level Follow cultures, deescalate antibiotics as soon as possible. Panculture if new onset fever ONCOLOGY/HEMATOLOGY/COAGULATION: Monitor for s/s of bleeding Monitor hemoglobin, coagulation studies as needed SKIN: Pressure ulcer prevention per facility protocol Specialty mattress ORTHO/REHAB: Continue PT/OT Prophylaxis: Continue GI and DVT prophylaxis Code Status: Full Resuscitation Disposition: TBD ATTESTATION BY PHYSICIAN I reviewed the documentation, medical decision making, and treatment plan as noted by the mid-level provider above. I agree with the findings and plan of care. Otto Eisenberg MD, [facility] [employer] Jul 08, 2025 22:21
[2025-07-08] MEDS ORDERED: SPIR25TA6 PO (22:23)
[2025-07-08] MEDS ORDERED: ASPI-1443 PO (22:23)
[2025-07-08] MEDS ORDERED: SERT-439 PO (22:23)
[2025-07-08] MEDS ORDERED: PRAS10TA9 PO (22:23)
[2025-07-08] MEDS ORDERED: GABA-529 PO (22:23)
[2025-07-08] MEDS ORDERED: FURO40TA5 PO (22:23)
[2025-07-08] MEDS ORDERED: SEMA1PEN3 SQ (22:23)
[2025-07-08] MEDS ORDERED: METO-408 PO (22:23)
[2025-07-08] MEDS ORDERED: ROSU10TA98 PO (22:23)
[2025-07-08] MEDS ORDERED: MAGN400T53 PO (22:23)
[2025-07-08] MEDS ORDERED: SACU1TAB PO (22:23)
[2025-07-08] MEDS ORDERED: METF-446 PO (22:23)
[2025-07-08] MEDS ORDERED: EZET10TA80 PO (22:23)
[2025-07-08] MEDS ORDERED: EMPA25TA PO (22:23)
[2025-07-09 01:40] VITALS: BP 152/67; PULSE 78; RESP 22; TEMP 97.8
[2025-07-09 04:00] VITALS: BP 126/67; PULSE 77; RESP 22; TEMP 98.3
--- NOTE | 2025-07-09 06:59 | EKG ---
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
[2025-07-09 07:21] LABS: NUCLEATED RED BLOOD CELLS 0.0 % (0.0-0.19); PLATELET COUNT (AUTO) 237.0 K/uL (130-400); RED BLOOD CELL COUNT(AUTO) 4.43 MIL/uL (4.00-5.50); RED CELL DISTRIBUTION WIDTH 12.8 % (11.0-15.5); WHITE BLOOD COUNT (AUTO) 7.7 K/uL (4.8-10.8)
[2025-07-09 07:58] LABS: CREATININE 0.6 mg/dL (0.5-1.0); GLOMERULAR FILTR. RATE CALC 102.0 mL/min (>90); GLUCOSE,RANDOM 91.0 mg/dL (70-105); PHOSPHORUS 5.5 mg/dL (2.5-4.9); SODIUM SERUM 143.0 mmol/L (136-145); UREA NITROGEN, BLOOD 24.0 mg/dL (7-18)
--- NOTE | 2025-07-09 08:00 | NUR ---
PT DOES NOT HAVE HER HOME MEDICATIONS HERE,FAMILY MEMBER CAN BRING THEM IN THIS PM.
--- NOTE | 2025-07-09 10:19 | NUR ---
DCP: HOME Pt lives at home with her Rommel Car [phone]. Pt on SSD and requires assistance with ADLS, home management and meal prep. states pt "tries" to do what she can on her own, but family must assist to get task completed. Pt uses a cane, regular walker, and CPAP. no provider, HH or HD services. PCP is Jodi Billingsley and uses [facility]. Pt denies need for SNF and will return home at de Addendum: 07/09/25 at 1025 by LES TRONCOSO Amended: Links added.
--- NOTE | 2025-07-09 11:01 | NUR ---
ORTHOSTATIC VITALS SUPPINE HR 81 BP 125/56 SITTING HR 77 BP 133/60 STANDING HR 83 BP 118/52
--- NOTE | 2025-07-09 13:44 | HMCSR ---
APPROVED REPORT EXAM: Two-dimensional and M-mode echocardiogram with Doppler and color Doppler. INDICATION ICD: Syncope R55, Rule out cardiac etiology 2D Dimensions RVDd4.0 cmLVEF(%)36.6 (>50%)LVED Vol(simp.)82.0 mL IVSd1.0 (0.7-1.1cm)FS(%)17 %LVES Vol(simp.)45.0 mL LVDd4.4 (3.8-5.6cm)LA (2D)4.3 (1.6-4.0cm)LVEF(%, simp.)45 % PWd0.9 (0.7-1.1cm)Ao Root(2D)3.0 (2.0-3.7cm)LA ESV INDEX (BP)32.29 mL/m2 IVSs1.1 cmLVOT diam2.0 (1.8-2.4cm) LVDs3.6 (2.5-4.0cm) PWs1.1 cm Deformation Strain Apical 4-13.3 % Apical 2-10.2 % Apical 3-14.1 % Global Strain-12.5 % M-Mode Dimensions EPSS1.4 cm LA (MM)4.4 (1.6-4.0cm) Ao Root(MM)2.9 (2.0-3.7cm) Aortic Valve AoV Vmax1.6 m/Sergio Peak GR10.0 mmHgLVOT Vmax0.8 m/s AoV VTI0.3 mAo Mean GR6.2 mmHgLVOT VTI0.17 m KOKO (VMAX)1.66 cm2AVA (VTI) 1.8 cm2 Mitral Valve MV E Vmax75.9 cm/sDECEL Cxzo723 ms MV A Vmax82.0 cm/sP 1/2 T57 ms E/A ratio0.9MVA (PHT)3.8 cm2 TDI E/E' Vcagsp65.9E/E' Lateral7.2 Medial E' Peak V4.01 cm/sLateral E' Peak V10.50 cm/s Pulmonary Valve PV Vmax0.8 m/sPV VTI0.16 mPV Mean GR1.7 mmHg PV Peak GR2.8 mmHg Tricuspid Valve RAP (EST) 3 mmHgRVSP3.0 mmHg Left Ventricle The left ventricle is normal size. GLS -13.0% There is normal left ventricular wall thickness. LVEF i s 45-50%. The left ventricular diastolic function is normal. Right Ventricle The right ventricle is normal size. Right ventricular systolic function is mildly reduced. Atria The left atrium size is normal. Possible PFO by color Doppler. The right atrium size is normal. Aortic Valve Aortic valve is trileaflet, mildly thickened and opens well. Left coronary cusp leaflet is mildly eloy cified with with good excursion. No aortic regurgitation is present. There is no aortic valvular sten osis. Mitral Valve The mitral valve is normal in structure. There is no mitral valve regurgitation noted. There is no mi tral valve stenosis. Tricuspid Valve The tricuspid valve is normal in structure. There is no tricuspid valve regurgitation noted. Pulmonic Valve The pulmonary valve is normal in structure. There is no pulmonic valvular regurgitation. Great Vessels The aortic root is normal in size. The IVC is normal in size and collapses >50% with inspiration. Pericardium There is no pericardial effusion. Other Information Quality : Adequate Conclusion The left ventricle is normal size. LVEF is 45-50%. The left ventricular diastolic function is normal. The right ventricle is normal size. Right ventricular systolic function is mildly reduced. The left atrium size is normal. The right atrium size is normal. Possible PFO by color Doppler. No valvular pathology. There is no pericardial effusion.
[2025-07-09 13:48] LABS: RAPID GROUP A STREP negative (NEGATIVE)
[2025-07-09 14:01] LABS: INFLUENZA TYPE A Negative For Type A (NEGATIVE); INFLUENZA TYPE B Negative For Type B (NEGATIVE); SARS-CoV-2, RNA, NAAT NEGATIVE SARS CoV-2 (NEGATIVE)
[2025-07-09] MEDS ORDERED: GLIP5TAB15 PO (14:42)
--- NOTE | 2025-07-09 14:42 | NUR ---
MEDICATIONS RECONCILED
--- NOTE | 2025-07-09 15:54 | HMCIMG ---
EXAMINATION: DUPLEX ULTRASOUND EXAMINATION OF THE BILATERAL CAROTID AND VERTEBRAL ARTERIES. CLINICAL HISTORY: Syncope. COMPARISON: Carotid doppler dated 09/03/2022. TECHNIQUE: Real-time ultrasound scan of the bilateral carotid and vertebral arteries, 2-D grayscale, with color Doppler flow and spectral waveform analysis. FINDINGS: Color and spectral Doppler interrogation of the carotid vessels on the right demonstrate peak systolic velocities as follows: CCA: 55 cm/s. Bulb: 76 cm/s. ECA: 116 cm/s. ICA (Proximal, mid, and distal): 78, 72, and 58 cm/s respectively. Vertebral artery demonstrates antegrade flow: 74 cm/s. Right ICA/CCA ratio: 1.4 Peak systolic velocities on the left are as follows: CCA (Proximal and distal): 90 and 68 cm/s respectively. Bulb: 124 cm/s. ECA: 124 cm/s. ICA (Proximal, mid, and distal): 157, 161, and 104 cm/s respectively. Vertebral artery demonstrates antegrade flow: 82 cm/s. Left ICA/CCA ratio: 2.4 Both the common carotid arteries and their branches reveal mild intimal thickening. There are calcified plaques in the bilateral bulb, left distal common carotid and bilateral proximal internal carotid arteries causing 10% to 20% stenosis. IMPRESSION: Mild intimal thickening in the bilateral carotid arteries and their branches. Plaques as described. Left ICA/CCA ratio: 2.4, suggest 50% to 69% stenosis. Recommend CT or MR angiogram. Interval appearance of the plaque in the left distal common carotid artery. /[place]
[2025-07-09 16:00] VITALS: BP 146/74; PULSE 82; RESP 18; TEMP 98.4
[2025-07-09 16:05] LABS: APPEARANCE,URINE CLEAR (CLEAR); GLUCOSE, URINE (UA) >=1000 mg/dL (NEGATIVE); LEUKOCYTE ESTERASE ,URINE NEGATIVE Leu/uL (NEGATIVE); NITRATE,URINE NEGATIVE (NEGATIVE); OCCULT BLOOD,URINE +- (TRACE) (NEGATIVE)
[2025-07-09 16:06] LABS: ADD UA MICROSCOPIC YES; SQUAMOUS EPITHELIAL CELL,UR RARE /HPF (0-2)
[2025-07-09 16:12] LABS: AMPHET/METH SCREEN,URINE NEGATIVE (NEGATIVE); BARBITURATE SCREEN, URINE NEGATIVE (NEGATIVE); CANNABINOID SCREEN,URINE NEGATIVE (NEGATIVE); COCAINE SCREEN,URINE NEGATIVE (NEGATIVE)
--- NOTE | 2025-07-09 16:21 | NUR ---
REPORT GIVEN TO NURSE TARUN
[2025-07-09 16:50] VITALS: O2SAT 97
--- NOTE | 2025-07-09 16:50 | NUR ---
UNIT ARRIVAL RECEIVED PATIENT FROM ER. PATIENT AWAKE, ALERT AND ORIENTED. PATIENT REPORTS NO PAIN AT THIS TIME. PATIENT SITTING UP CHAIR, NO SIGNS OF DISTRESS NOTED.
[2025-07-09 19:35] VITALS: BP 115/58; PULSE 78; RESP 19; TEMP 98.5
--- NOTE | 2025-07-09 19:59 | PN ---
[facility] PROGRESS NOTE Date Patient Seen: Jul 09, 2025 Time of Visit: 1447 Supervising Physician: Dr. Ozuna Primary Care Physician: Dr. Mateo Billingsley Outpatient Specialists: Inpatient Consults: Cardiology neurology PROBLEM LIST: Acute near syncopal episode Left ICA/CCA suggesting 50% to 69% stenosis per carotid Dopplers 07/09/2025 Class three angina with positive stress test and failed vein graft s/p coronary shock way PTCA and drug eluting stent implant done on 07/04/[address] Iniguez Heart failure reduced ejection fraction 45-50% per echocardiogram 07/09/2025 Possible PFO by color Doppler per echocardiogram 07/09/2025 Diabetes mellitus with hyperglycemia Obese Diabetes mellitus with hyperglycemia Uncontrolled hypertension Gastritis CAD s/p CABG September 21, 2022 Severe three-vessel coronary disease with all three saphenous vein grafts occluded s/p left heart catheterization on 06/18/2025 History of left hip replacement History of umbilical hernia repair x2 INTERVAL HISTORY: 07/09 patient was seen and examined by bedside with no family present. Patient is awake alert able to answer simple questions appropriately. Patient denies any chest pain or shortness of breadth. Denies any nausea vomiting or abdominal pain. Denies any reoccurrence dizziness or syncopal episodes. Patient currently pending orthostatic vital signs we will follow up with results. Patient CT head was unremarkable. Patient's echocardiogram shows EF of 45-50% with possible PFO per color Doppler. Patient's carotid Dopplers report ICA/CCA suggesting 50-69% stenosis. At this time we will consult Neurology appreciate assistance we will follow their recommendations. We will also order a CTA head and neck. REVIEW OF SYSTEMS: 12 point ROS reviewed with patient. Pertinent positives mentioned above. Otherwise negative. PHYSICAL EXAM: GENERAL: Alert, awake oriented x 3 HEENT: EOMI, Sclera non icteric, moist mucosa NECK: Supple, no JVD, trachea midline LUNGS: Clear breath sounds bilaterally. No wheezes HEART: Regular rate and rhythm. Normal S1 and S2, without murmurs ABD: Abdomen soft, nontender. Bowel sounds present. Obese EXT: No clubbing cyanosis or edema NEURO: Alert and oriented to person, follows commands Vital Signs (last 8hr) Date Time Temp Pulse Resp B/P (MAP) Pulse Ox O2 Delivery O2 Flow Rate FiO2 07/09/25 16:00 97.0 76 19 150/73 98 Room Air* 0 21 07/09/25 16:00 98.4 82 18 146/74 97 Room Air 07/09/25 14:00 97.0 80 20 126/75 97 Room Air* 0 21 07/09/25 12:00 97.0 78 18 118/52 95 Room Air* 0 21 LABS: Hematology Labs: Test 07/09/25 07:15 07/08/25 17:05 Range/Units White Blood Count 7.7 4.8-10.8 K/uL Red Blood Count 4.43 4.00-5.50 MIL/uL Hemoglobin 13.9 12.0-16.0 g/dL Hematocrit 42.1 36-48 % Mean Corpuscular Volume 95.0 79-99 fL Mean Corpuscular Hemoglobin 31.4 27.0-33.0 pg Mean Corpuscular Hemoglobin Concent 33.0 32.0-36.0 g/dL Red Cell Distribution Width 12.8 11.0-15.5 % Platelet Count 237 130-400 K/uL Mean Platelet Volume 10.1 7.5-10.5 fL Nucleated Red Blood Cells 0.0 0.0-0.19 % Immature Granulocyte % (Auto) 0.4 0-1 % Neutrophils (%) (Auto) 68.7 40.0-77.0 % Lymphocytes (%) (Auto) 19.5 L 21.0-51.0 % Monocytes (%) (Auto) 9.5 3.0-13.0 % Eosinophils (%) (Auto) 1.5 0.0-8.0 % Basophils (%) (Auto) 0.4 0.0-5.0 % Neutrophils # (Auto) 5.4 1.8-7.7 K/uL Lymphocytes # (Auto) 1.5 1.0-4.8 K/uL Monocytes # (Auto) 0.8 0.1-1.0 K/uL Eosinophils # (Auto) 0.12 0.00-0.70 K/uL Basophils # (Auto) 0.03 0.00-0.20 K/uL Absolute Immature Granulocyte (auto 0.03 0-1 K/uL Chemistry Labs: Test 07/09/25 18:06 07/09/25 07:15 07/08/25 17:05 Range/Units Whole Blood Glucose 177 H 70-110 MG/DL Sodium Level 143 136-145 mmol/L Potassium Level 4.8 3.5-5.1 mmol/L Chloride Level 105 101-111 mmol/L Carbon Dioxide Level 28 21-32 mmol/L Blood Urea Nitrogen 24 H 7-18 mg/dL Creatinine 0.6 0.5-1.0 mg/dL Glomerular Filtration Rate Calc 102 >90 mL/min Random Glucose 91 70-105 mg/dL Total Calcium 9.4 8.5-10.1 mg/dL Phosphorus Level 5.5 H 2.5-4.9 mg/dL Magnesium Level 2.30 1.80-2.40 mg/dL Troponin I High Sensitivity 40 4-50 ng/L Thyroid Stimulating Hormone (TSH) 0.44 # 0.36-3.74 uIU/mL Hemoglobin A1c 9.0 H 4.0-6.0 % Estimated Average Glucose (eAG) 212 H 70-126 mg/dL Total Bilirubin 0.4 0.2-1.0 mg/dL Direct Bilirubin 0.1 0.0-0.3 mg/dL Aspartate Amino Transf (AST/SGOT) 19 10-37 U/L Alanine Aminotransferase (ALT/SGPT) 20 12-78 U/L Alkaline Phosphatase 68 50-136 U/L B-Type Natriuretic Peptide 141 H 0-100 pg/mL Total Protein 7.3 6.0-8.3 g/dL Albumin 3.5 3.5-5.0 g/dL Coagulation Labs: Test 07/08/25 17:05 Range/Units Prothrombin Time 10.0 9.6-11.6 SEC Prothromb Time International Ratio 0.94 0.85-1.15 Activated Partial Thromboplast Time 26.5 26.3-35.5 SEC DIAGNOSTICS / RADIOLOGY RESULTS: na PLAN Consult Neurology Follow up with the orthostatic vital signs Follow up with CTA head and neck Continue Entresto one tab b.i.d. Continue [id number] mg daily Continue Lasix 40 mg daily Continue [id number] mg daily Continue spironolactone 25 mg daily Continue atorvastatin 40 mg q.h.s. Continue to monitor via telemetry NEURO: Minimize central acting medications as possible. Maintain fall precautions, adequate lighting during the day PULMONARY: Supplemental 02 as needed. Maintain aspiration precautions at all times CARDIOVASCULAR: Follow hemodynamics. Vital signs per facility protocol GI & NUTRITION: Continue with nutritional support. Continue stool softeners and laxatives as needed. KIDNEYS & ELECTROLYTES: Strict monitoring of intake, output and overall fluid balance. Avoid nephrotoxic medications to the extent possible. Medications to be dosed according to renal function. Monitor electrolytes and replace as needed ENDOCRINE: Maintain blood glucose between 100-180 at all times. Hypoglycemia protocol in place INFECTIOUS DISEASE: Trend temperature, WBC and procalcitonin level Follow cultures, deescalate antibiotics as soon as possible. Panculture if new onset fever ONCOLOGY/HEMATOLOGY/COAGULATION: Monitor for s/s of bleeding Monitor hemoglobin, coagulation studies as needed SKIN: Pressure ulcer prevention per facility protocol Specialty mattress ORTHO/REHAB: Continue PT/OT Prophylaxis: Continue GI and DVT prophylaxis Code Status: Full Resuscitation Disposition: TBD Case discussed with supervising physician plan of care agreed upon KANDICE SHORT Jul 09, 2025 19:59
[2025-07-09] MEDS ORDERED: 0.9%NACL 1000ML 1,000 ML IV SCH (20:00)
[2025-07-09] MEDS ORDERED: IOHEXOL-350 75 ML VIAL IV ONE (20:02)
[2025-07-09] MEDS: SACUBITRIL/VALSARTAN 1 EACH TABLET PO SCH (22:14)
[2025-07-09 23:41] VITALS: BP 144/76; PULSE 78; RESP 19; TEMP 98.2
[2025-07-10] VITALS (10 sets, daily range): BP systolic 98–157; BP diastolic 55–87; PULSE 74–92; RESP 12–20; TEMP 97.6–98.3; O2SAT 98
[2025-07-10] MEDS: PRASUGREL HCL 10 MG TABLET PO SCH (09:44)
[2025-07-10] MEDS: MAGNESIUM OXIDE 400 MG TABLET PO SCH (09:44)
[2025-07-10] MEDS: SPIRONOLACTONE 25 MG TAB PO SCH (09:44)
[2025-07-10] MEDS: ASPIRIN 81 MG EC TAB PO SCH (09:44)
--- NOTE | 2025-07-10 10:06 | CONS ---
CONSULTATION NOTE Date of Service: Jul 10, 2025 Reason for Consultation: Evaluation of dizziness Requesting Physician: Hospitalist HISTORY OF PRESENT ILLNESS: Ms. Car is a 59-year-old right-handed female with a history of congestive heart failure, coronary artery disease, sleep apnea, obesity, depression, type II diabetes, hypertension, and dyslipidemia presenting with a near-syncopal episode that occurred yesterday at approximately 2:33 PM. The patient reports that prior to the incident, while waiting for her 's appointment, she experienced visual disturbances. She describes her vision as "things started like, they were moving really fast." She attempted to close her eyes and meditate to calm herself down. Upon standing to go to the restroom, she felt "not all there" but was able to walk and enter the bathroom. In the restroom, as she squatted to sit on the toilet to urinate, she experienced a sudden onset of dizziness, which she describes as a "dizzy spell." This caused her to lose her balance, fall forward, hit her left knee on the floor, and strike her head against the wall. The patient emphasizes that she did not lose consciousness or "black out," but rather experienced lightheadedness and loss of balance. She denies any prior history of passing out. The patient reports no constipation or straining during the incident, as she was only attempting to urinate. She also denies any complete loss of consciousness before, during, or after the fall. Medical History - Congestive heart failure - Coronary artery disease - Sleep apnea - Obesity - Depression - Type II diabetes - Hypertension - Dyslipidemia - Mild atherosclerotic disease in carotid arteries Social History - Language: Bilingual in Vietnamese and Kitt[place] REVIEW OF SYSTEMS General: Positive for dizziness. HEENT: Positive for blurry vision, visual disturbances (things moving fast). Cardiovascular: Positive for lightheadedness. Neurological: Positive for loss of balance. Musculoskeletal: Positive for knee pain after fall. PAST MEDICAL HISTORY: as above PAST SURGICAL HISTORY: as above PAST SOCIAL HISTORY: as above FAMILY HISTORY: None Coded Allergies: No Known Allergies (Verified Allergy, Unknown, 01/14/19) PHYSICAL EXAM Mental status: The patient is alert, attentive, and oriented. Speech is clear and fluent with good repetition, comprehension, and naming. Pt recalls 3/3 objects at 5 minutes. Cranial nerves: CN II: Visual briceno are full to confrontation. CN III, IV, : At primary gaze, there is no eye deviation. CN V: Facial sensation is intact to pinprick in all 3 divisions bilaterally. Corneal responses are intact. CN VII: Face is symmetric with normal eye closure and smile. CN VIII: Hearing is normal to rubbing fingers CN IX, X: Palate elevates symmetrically. Phonation is normal. CN XI: Head turning and shoulder shrug are intact CN XII: Tongue is midline with normal movements and no atrophy. Motor: There is no pronator drift of out-stretched arms. Muscle bulk and tone are normal. Strength is full bilaterally. Reflexes: Reflexes are 2+ and symmetric at the biceps, triceps, knees, and ankles. Plantar responses are flexor. Sensory: Light touch, pinprick, position sense, and vibration sense are intact in fingers and toes. Coordination: Rapid alternating movements and fine finger movements are intact. There is no dysmetria on [id number] and eyin-sngy-myji. There are no abnormal or extraneous movements. Romberg is absent. Gait/Stance: Not evaluated Vital Sign (Last 24 Hours) 07/09/25 07/10/25 07/10/25 22:22 06:08 07:47 Temp 98.2 Pulse 87 Resp 12 B/P (MAP) 155/78 Pulse Ox 98 O2 Delivery Room Air O2 Flow Rate 0 FiO2 21 Intake & Output (last 24hrs) 07/09/25 07/09/25 07/10/25 15:00 23:00 07:00 Intake Total 300 ml Balance 300 ml LABS: Laboratory: Test 07/10/25 05:11 07/09/25 15:45 07/09/25 13:05 07/09/25 07:15 Range/Units Whole Blood Glucose 112 H 70-110 MG/DL Urine Color LIGHT-YELLOW YELLOW Urine Appearance CLEAR CLEAR Urine pH 6.0 5.0-8.0 Urine Specific [place] 1.031 1.001-1.031 Urine Protein 70 H NEGATIVE mg/dL Urine Glucose (UA) >=1000 H NEGATIVE mg/dL Urine Ketones NEGATIVE NEGATIVE mg/dL Urine Occult Blood +- (TRACE) H NEGATIVE Urine Nitrate NEGATIVE NEGATIVE Urine Bilirubin NEGATIVE NEGATIVE mg/dL Urine Urobilinogen 0.2 0.2-1.0 mg/dL Urine Leukocyte Esterase NEGATIVE NEGATIVE Ynes/uL Urine RBC 0-1 0-1 /HPF Urine WBC 0-1 0-1 /HPF Urine Squamous Epithelial Cells RARE 0-2 /HPF Urine Bacteria None None Seen /HPF Urine Opiates Screen NEGATIVE NEGATIVE Urine Barbiturates Screen NEGATIVE NEGATIVE Urine Phencyclidine Screen NEGATIVE NEGATIVE Urine Amphetamines Screen NEGATIVE NEGATIVE Urine Benzodiazepines Screen NEGATIVE NEGATIVE Urine Cocaine Screen NEGATIVE NEGATIVE Urine Marijuana (THC) Screen NEGATIVE NEGATIVE Influenza Type A Antigen Negative For Type A NEGATIVE Influenza Type B Antigen Negative For Type B NEGATIVE SARS-CoV-2, RNA, NAAT NEGATIVE SARS CoV-2 NEGATIVE Group A Streptococcus Rapid negative NEGATIVE White Blood Count 7.7 4.8-10.8 K/uL Red Blood Count 4.43 4.00-5.50 MIL/uL Hemoglobin 13.9 12.0-16.0 g/dL Hematocrit 42.1 36-48 % Mean Corpuscular Volume 95.0 79-99 fL Mean Corpuscular Hemoglobin 31.4 27.0-33.0 pg Mean Corpuscular Hemoglobin Concent 33.0 32.0-36.0 g/dL Red Cell Distribution Width 12.8 11.0-15.5 % Platelet Count 237 130-400 K/uL Mean Platelet Volume 10.1 7.5-10.5 fL Nucleated Red Blood Cells 0.0 0.0-0.19 % Sodium Level 143 136-145 mmol/L Potassium Level 4.8 3.5-5.1 mmol/L Chloride Level 105 101-111 mmol/L Carbon Dioxide Level 28 21-32 mmol/L Blood Urea Nitrogen 24 H 7-18 mg/dL Creatinine 0.6 0.5-1.0 mg/dL Glomerular Filtration Rate Calc 102 >90 mL/min Random Glucose 91 70-105 mg/dL Total Calcium 9.4 8.5-10.1 mg/dL Phosphorus Level 5.5 H 2.5-4.9 mg/dL Magnesium Level 2.30 1.80-2.40 mg/dL Troponin I High Sensitivity 40 4-50 ng/L Thyroid Stimulating Hormone (TSH) 0.44 # 0.36-3.74 uIU/mL Test 07/08/25 17:05 Range/Units Immature Granulocyte % (Auto) 0.4 0-1 % Neutrophils (%) (Auto) 68.7 40.0-77.0 % Lymphocytes (%) (Auto) 19.5 L 21.0-51.0 % Monocytes (%) (Auto) 9.5 3.0-13.0 % Eosinophils (%) (Auto) 1.5 0.0-8.0 % Basophils (%) (Auto) 0.4 0.0-5.0 % Neutrophils # (Auto) 5.4 1.8-7.7 K/uL Lymphocytes # (Auto) 1.5 1.0-4.8 K/uL Monocytes # (Auto) 0.8 0.1-1.0 K/uL Eosinophils # (Auto) 0.12 0.00-0.70 K/uL Basophils # (Auto) 0.03 0.00-0.20 K/uL Absolute Immature Granulocyte (auto 0.03 0-1 K/uL Prothrombin Time 10.0 9.6-11.6 SEC Prothromb Time International Ratio 0.94 0.85-1.15 Activated Partial Thromboplast Time 26.5 26.3-35.5 SEC Hemoglobin A1c 9.0 H 4.0-6.0 % Estimated Average Glucose (eAG) 212 H 70-126 mg/dL Total Bilirubin 0.4 0.2-1.0 mg/dL Direct Bilirubin 0.1 0.0-0.3 mg/dL Aspartate Amino Transf (AST/SGOT) 19 10-37 U/L Alanine Aminotransferase (ALT/SGPT) 20 12-78 U/L Alkaline Phosphatase 68 50-136 U/L B-Type Natriuretic Peptide 141 H 0-100 pg/mL Total Protein 7.3 6.0-8.3 g/dL Albumin 3.5 3.5-5.0 g/dL DIAGNOSTICS / RADIOLOGY: CT scan of the head without contrast normal ASSESSMENT / PLAN: Ms. Car is a 59-year-old right-handed female with multiple comorbidities including congestive heart failure, coronary artery disease, diabetes type II, and hypertension who experienced a near-syncopal episode with dizziness and fall while attempting to use the restroom yesterday at 2:33 PM. Near-syncopal episode with fall Assessment: Patient experienced a near-syncopal episode yesterday at 2:33 PM while attempting to use the restroom. Prior to the incident, she noted visual disturbances with objects appearing to move rapidly while sitting in a waiting room. She then felt "not all there" while walking to the restroom. While squatting to sit on the toilet, she experienced dizziness and lost balance, falling forward and striking her left knee on the floor and her head against the wall. She did not lose consciousness or have a blackout episode. This presentation is consistent with a vasovagal response, likely precipitated by already low blood pressure combined with the micturition reflex which can slow heart rhythm and further decrease blood pressure. Carotid ultrasound revealed only mild atherosclerotic disease with no major abnormalities. CTA of head and neck is pending. Neurological examination was normal with intact strength, sensation, and cranial nerve function. Plan: - No specific neurological interventions required as examination is normal and episode was likely vasovagal in nature - Cardiology will continue evaluation with echocardiogram and EKG - CTA head and neck results pending Thank you for your consultation. I will sign off EDUARDO LINO MD Jul 10, 2025 10:06
[2025-07-10] MEDS: EZETIMIBE 10 MG TAB PO SCH (12:09)
--- NOTE | 2025-07-10 16:18 | NUR ---
PHYSICIAN CONSULT PATIENT PENDING CARDIOLOGY CONSULT SINCE 07/09. DR. NAM PAGED AT 1300 STILL PENDING CALLBACK. ATTEMPTED TO CONTACT OFFICE AND SENT TO . CALLED DR. TOMPKINS TO VERIFY TICKETING CLERK PHYSICIAN PER DR. TOMPKINS WILL SEND MESSAGE TO DR. NAM FOR CONSULT.
--- NOTE | 2025-07-10 16:37 | PN ---
[facility] PROGRESS NOTE Date Patient Seen: Jul 10, 2025 Time of Visit: 1202 Supervising Physician: Dr. Wilburn Primary Care Physician: Dr. Mateo Billingsley Outpatient Specialists: Inpatient Consults: Cardiology neurology PROBLEM LIST: Acute near syncopal episode Left ICA/CCA suggesting 50% to 69% stenosis per carotid Dopplers 07/09/2025 Class three angina with positive stress test and failed vein graft s/p coronary shock way PTCA and drug eluting stent implant done on 07/04/[address] Iniguez Heart failure reduced ejection fraction 45-50% per echocardiogram 07/09/2025 Possible PFO by color Doppler per echocardiogram 07/09/2025 Diabetes mellitus with hyperglycemia Obese Diabetes mellitus with hyperglycemia Uncontrolled hypertension Gastritis CAD s/p CABG September 21, 2022 Severe three-vessel coronary disease with all three saphenous vein grafts occluded s/p left heart catheterization on 06/18/2025 History of left hip replacement History of umbilical hernia repair x2 INTERVAL HISTORY: 07/09 patient was seen and examined by bedside with no family present. Patient is awake alert able to answer simple questions appropriately. Patient denies any chest pain or shortness of breadth. Denies any nausea vomiting or abdominal pain. Denies any reoccurrence dizziness or syncopal episodes. Patient currently pending orthostatic vital signs we will follow up with results. Patient CT head was unremarkable. Patient's echocardiogram shows EF of 45-50% with possible PFO per color Doppler. Patient's carotid Dopplers report ICA/CCA suggesting 50-69% stenosis. At this time we will consult Neurology appreciate assistance we will follow their recommendations. We will also order a CTA head and neck. 07/10 patient was seen and examined at bedside with present. At time of visit patient has no specific complaints. Denies any reoccurrence near syncope episodes or any dizziness. Denies chest pain or shortness of breadth. Denies any nausea vomiting or abdominal pain. He is tolerating p.o. diet is having bowel movements. As per Neurology no specific neurological intervention required as examination is normal in episode was likely vasovagal in nature. Patient currently pending evaluation from Cardiology appreciate assistance we will follow their recommendations. Patient currently pending CTA head and neck we will follow up with results. As per primary nurse no acute events to be reported at this time REVIEW OF SYSTEMS: 12 point ROS reviewed with patient. Pertinent positives mentioned above. Otherwise negative. PHYSICAL EXAM: GENERAL: Alert, awake oriented x 3 HEENT: EOMI, Sclera non icteric, moist mucosa NECK: Supple, no JVD, trachea midline LUNGS: Clear breath sounds bilaterally. No wheezes HEART: Regular rate and rhythm. Normal S1 and S2, without murmurs ABD: Abdomen soft, nontender. Bowel sounds present. Obese EXT: No clubbing cyanosis or edema NEURO: Alert and oriented to person, follows commands Vital Signs (last 8hr) Date Time Temp Pulse Resp B/P (MAP) Pulse Ox O2 Delivery O2 Flow Rate FiO2 07/10/25 15:33 75 12 98/55 95 Room Air 07/10/25 11:44 97.9 79 12 115/57 93 Room Air 07/10/25 09:42 98 Room Air* 0 21 LABS: Hematology Labs: Test 07/09/25 07:15 07/08/25 17:05 Range/Units White Blood Count 7.7 4.8-10.8 K/uL Red Blood Count 4.43 4.00-5.50 MIL/uL Hemoglobin 13.9 12.0-16.0 g/dL Hematocrit 42.1 36-48 % Mean Corpuscular Volume 95.0 79-99 fL Mean Corpuscular Hemoglobin 31.4 27.0-33.0 pg Mean Corpuscular Hemoglobin Concent 33.0 32.0-36.0 g/dL Red Cell Distribution Width 12.8 11.0-15.5 % Platelet Count 237 130-400 K/uL Mean Platelet Volume 10.1 7.5-10.5 fL Nucleated Red Blood Cells 0.0 0.0-0.19 % Immature Granulocyte % (Auto) 0.4 0-1 % Neutrophils (%) (Auto) 68.7 40.0-77.0 % Lymphocytes (%) (Auto) 19.5 L 21.0-51.0 % Monocytes (%) (Auto) 9.5 3.0-13.0 % Eosinophils (%) (Auto) 1.5 0.0-8.0 % Basophils (%) (Auto) 0.4 0.0-5.0 % Neutrophils # (Auto) 5.4 1.8-7.7 K/uL Lymphocytes # (Auto) 1.5 1.0-4.8 K/uL Monocytes # (Auto) 0.8 0.1-1.0 K/uL Eosinophils # (Auto) 0.12 0.00-0.70 K/uL Basophils # (Auto) 0.03 0.00-0.20 K/uL Absolute Immature Granulocyte (auto 0.03 0-1 K/uL Chemistry Labs: Test 07/10/25 15:32 07/09/25 07:15 07/08/25 17:05 Range/Units Whole Blood Glucose 155 H 70-110 MG/DL Sodium Level 143 136-145 mmol/L Potassium Level 4.8 3.5-5.1 mmol/L Chloride Level 105 101-111 mmol/L Carbon Dioxide Level 28 21-32 mmol/L Blood Urea Nitrogen 24 H 7-18 mg/dL Creatinine 0.6 0.5-1.0 mg/dL Glomerular Filtration Rate Calc 102 >90 mL/min Random Glucose 91 70-105 mg/dL Total Calcium 9.4 8.5-10.1 mg/dL Phosphorus Level 5.5 H 2.5-4.9 mg/dL Magnesium Level 2.30 1.80-2.40 mg/dL Troponin I High Sensitivity 40 4-50 ng/L Thyroid Stimulating Hormone (TSH) 0.44 # 0.36-3.74 uIU/mL Hemoglobin A1c 9.0 H 4.0-6.0 % Estimated Average Glucose (eAG) 212 H 70-126 mg/dL Total Bilirubin 0.4 0.2-1.0 mg/dL Direct Bilirubin 0.1 0.0-0.3 mg/dL Aspartate Amino Transf (AST/SGOT) 19 10-37 U/L Alanine Aminotransferase (ALT/SGPT) 20 12-78 U/L Alkaline Phosphatase 68 50-136 U/L B-Type Natriuretic Peptide 141 H 0-100 pg/mL Total Protein 7.3 6.0-8.3 g/dL Albumin 3.5 3.5-5.0 g/dL Coagulation Labs: Test 07/08/25 17:05 Range/Units Prothrombin Time 10.0 9.6-11.6 SEC Prothromb Time International Ratio 0.94 0.85-1.15 Activated Partial Thromboplast Time 26.5 26.3-35.5 SEC DIAGNOSTICS / RADIOLOGY RESULTS: na PLAN As per Neurology no urological intervention required at this time we will sign off Pending cardiology evaluation Follow up with CTA head and neck, still pending Continue Entresto one tab b.i.d. Continue mg daily Continue Lasix 40 mg daily Continue [id number] mg daily Continue spironolactone 25 mg daily Continue atorvastatin 40 mg q.h.s. Continue to monitor via telemetry NEURO: Minimize central acting medications as possible. Maintain fall precautions, adequate lighting during the day PULMONARY: Supplemental 02 as needed. Maintain aspiration precautions at all times CARDIOVASCULAR: Follow hemodynamics. Vital signs per facility protocol GI & NUTRITION: Continue with nutritional support. Continue stool softeners and laxatives as needed. KIDNEYS & ELECTROLYTES: Strict monitoring of intake, output and overall fluid balance. Avoid nephrotoxic medications to the extent possible. Medications to be dosed according to renal function. Monitor electrolytes and replace as needed ENDOCRINE: Maintain blood glucose between 100-180 at all times. Hypoglycemia protocol in place INFECTIOUS DISEASE: Trend temperature, WBC and procalcitonin level Follow cultures, deescalate antibiotics as soon as possible. Panculture if new onset fever ONCOLOGY/HEMATOLOGY/COAGULATION: Monitor for s/s of bleeding Monitor hemoglobin, coagulation studies as needed SKIN: Pressure ulcer prevention per facility protocol Specialty mattress ORTHO/REHAB: Continue PT/OT Prophylaxis: Continue GI and DVT prophylaxis Code Status: Full Resuscitation Disposition: TBD Case discussed with supervising physician plan of care agreed upon KANDICE SHORT Jul 10, 2025 16:37
--- NOTE | 2025-07-10 17:00 | NUR ---
PHYSICIAN NOTIFICATION RECEIVED CALL FROM DR. NAM WILL ROUND ON PATIENT LATER TODAY.
[2025-07-11] VITALS (8 sets, daily range): BP systolic 112–153; BP diastolic 54–76; PULSE 68–80; RESP 18–20; TEMP 97.9–98.2; O2SAT 95
--- NOTE | 2025-07-11 | NUR ---
orthostatic vs lying 126/66 hr 71 standing 141/76 hr 79 standing 138/79 hr 76
--- NOTE | 2025-07-11 10:29 | HMCIMG ---
EXAM: CTA Head and Neck with and without Intravenous Contrast. CLINICAL HISTORY: Syncope. TECHNIQUE: Axial CTA images of the head and neck with and without Intravenous Contrast were performed. Coronal and sagittal reformatted images were generated and reviewed. CT scan done according to ALARA (As Low as Reasonably Achievable). COMPARISON: None provided. FINDINGS: Head: Anterior cerebral arteries are unremarkable. The anterior communicating artery is opacified. The Middle Cerebral arteries are unremarkable. Posterior communicating arteries are opacified. Posterior cerebral arteries are intact. Vertebral arteries are visualized. The basilar artery is unremarkable. Intracranial internal carotid arteries demonstrate normal enhancement. No evidence of aneurysm or arteriovenous lesion. Neck: Mild atherosclerosis in the aortic arch and bilateral common carotid arteries. There is a calcified plaque in the left carotid bulb extending into the proximal cervical segment of the left internal carotid artery and measuring approximately 2.5cm in length, causing moderate (approximately 40%) luminal narrowing. Small calcified plaques in the right carotid bulb and the right internal carotid artery without significant flow-limiting stenosis. Origin of the ECA is well opacified. Vertebral arteries are well opacified. Jugular veins are well opacified Included lung apices are grossly unremarkable. No acute bony changes. IMPRESSION: 1. Atherosclerosis in bilateral common carotid arteries with calcified plaque in the left carotid bulb extending into the left proximal cervical internal carotid artery, causing moderate narrowing by approximately 40%. 2. No hemodynamically significant abnormality in the intracranial arteries. /[place]
--- NOTE | 2025-07-11 11:28 | CONS ---
Acute near syncopal episode Left ICA/CCA suggesting 50% to 69% stenosis per carotid Dopplers 07/09/2025 Class three angina with positive stress test and failed vein graft s/p coronary shock way PTCA and drug eluting stent implant done on 07/04/[address] Nam Heart failure reduced ejection fraction 45-50% per echocardiogram 07/09/2025 Possible PFO by color Doppler per echocardiogram 07/09/2025 Diabetes mellitus with hyperglycemia Obese Diabetes mellitus with hyperglycemia Uncontrolled hypertension Gastritis CAD s/p CABG September 21, 2022 Severe three-vessel coronary disease with all three saphenous vein grafts occluded s/p left heart catheterization on 06/18/2025 History of left hip replacement History of umbilical hernia repair x2 We are consulted for near-syncope and concern about a modest left carotid stenosis which is not clinically significant. She had a peak carotid flow velocity in the 160 range and a CTA showing 40% narrowing, and this would not account for her recent visual changes and fall. The patient describes feeling a little bit weak as she was going to the bathroom, and then when she got there and was lowering her underwear her visual changes became a bit more intense and she fell forward mechanically, not losing consciousness, and found she could not catch the handicapped rail to support herself so she fell and hit her head. She was referred here by ambulance because of head trauma on dual antiplatelet therapy but there has been no bleeding consequence. There has been no further lightheadedness or syncope or presyncope. She has never had a full syncopal episode. The patient recently underwent right coronary stent implant for diffuse calcified disease and it was successful. This produced significant improvement in class three dyspnea on exertion, although she still does have some degree of dyspnea on exertion. The patient also has some residual fogginess of her vision because of difficulty with retinal detachment and chronic diabetic ocular complications, but no change for the worse during this hospitalization. Review of systems is negative for chest pain or chest pressure, dyspnea or orthopnea, palpitations, or any lightheadedness or visual changes not described above. She has not been experiencing dyspepsia or GI symptoms, but the presyncopal episode did occur when she was about to use the toilet. Apparently she felt urgency, and then when she stood is when she became further weekend with intensification of visual changes. Physical exam shows an obese patient who is alert and oriented in all spheres and cheerful. No JVD, no rales, nonlabored respiration, distant heart tones, protuberant abdomen with normal bowel sounds, no edema, neurologically intact. Impression and recommendation: I do not think the carotid disease has anything to do with her symptoms. I think she had a Vegotonic episode of hypotension and could be discharged. She has a follow up appointment in my office next week. Patient History: Cardiovascular disease FATHER, , Onset:40's - 50 Completed stroke FATHER, Diabetes mellitus SISTER, SISTER Hypertension FATHER, Vitals/Labs Vital Signs Date Time Temp Pulse Resp B/P (MAP) Pulse Ox O2 Delivery O2 Flow Rate FiO2 07/11/25 09:57 95 Room Air* 0 21 07/11/25 07:54 97.9 68 19 153/75 Allergies: Coded Allergies: No Known Allergies (Verified Allergy, Unknown, 01/14/19) Medications Current Medications Acetaminophen 650 mg Q6H PRN PO; Start 07/08/25 at 20:30; Stop 08/07/25 at 20:29 Acetaminophen 650 mg Q6H PRN RC; Start 07/08/25 at 20:30; Stop 08/07/25 at 20:29 Lactulose 20 gm Q6H PRN PO; Start 07/08/25 at 20:30; Stop 08/07/25 at 20:29 Docusate Sodium 100 mg BID PRN PO; Start 07/08/25 at 20:30; Stop 08/07/25 at 20:29 Temazepam 15 mg HS PRN PO; Start 07/08/25 at 20:30; Stop 08/07/25 at 20:29 Ondansetron HCl 4 mg Q6H PRN IVP; Start 07/08/25 at 20:30; Stop 08/07/25 at 20:29 Labetalol HCl 10 mg Q2H PRN IV; Start 07/08/25 at 20:30; Stop 08/07/25 at 20:29 Insulin Human Regular INSULIN SLIDING SCAL... ACHS SQ Last administered on 07/10/25at 20:36; Start 07/08/25 at 21:00; Stop 08/07/25 at 20:59 Aspirin 81 mg DAILY PO Last administered on 07/11/25at 08:48; Start 07/10/25 at 09:00; Stop 08/09/25 at 08:59 EZETIMIBE 10 mg ACLUNCH PO Last administered on 07/10/25at 12:09; Start 07/10/25 at 11:30; Stop 08/09/25 at 11:29 Furosemide 40 mg DAILY PO Last administered on 07/11/25at 08:48; Start 07/10/25 at 09:00; Stop 08/09/25 at 08:59 Gabapentin 100 mg HS PO Last administered on 07/10/25at 20:35; Start 07/09/25 at 21:00; Stop 08/08/25 at 20:59 Magnesium Oxide 400 mg DAILY PO Last administered on 07/11/25 08:48; Start 07/10/25 at 09:00; Stop 08/09/25 at 08:59 Metoprolol Succinate 25 mg DAILY PO Last administered on 07/11/25at 08:48; Start 07/10/25 at 09:00; Stop 08/09/25 at 08:59 Prasugrel 10 mg DAILY PO Last administered on 07/11/25at 08:48; Start 07/10/25 at 09:00; Stop 08/09/25 at 08:59 Sacubitril/ Valsartan 1 each BID PO Last administered on 07/11/25 08:48; Start 07/09/25 at 21:00; Stop 08/08/25 at 20:59 Sertraline HCl 50 mg DAILY PO Last administered on 07/11/25at 08:48; Start 07/10/25 at 09:00; Stop 08/09/25 at 08:59 Spironolactone 25 mg DAILY PO Last administered on 07/11/25at 08:48; Start 07/10/25 at 09:00; Stop 08/09/25 at 08:59 Atorvastatin Calcium 40 mg HS PO Last administered on 07/10/25at 20:34; Start 07/09/25 at 21:00; Stop 08/08/25 at 20:59 Meclizine HCl 25 mg BID PRN PO; Start 07/09/25 at 12:30; Stop 07/09/25 at 12:28; Status DC Cetirizine HCl 10 mg DAILY PO Last administered on 07/11/25at 08:48; Start 07/10/25 at 12:30; Stop 08/09/25 at 12:29 Meclizine HCl 25 mg BID PO Last administered on 07/11/25at 08:48; Start 07/09/25 at 12:30; Stop 07/11/25 at 23:00 Sodium Chloride 1,000 ml @ 75 mls/hr [id number] IV; Start 07/09/25 at 20:00; Stop 07/09/25 at 19:58; Status DC Iohexol 75 ml STK-MED ONCE IV; Start 07/09/25 at 20:02; Stop 07/09/25 at 20:03; Status DC JACKIE NAM MD Jul 11, 2025 11:28
--- NOTE | 2025-07-11 15:59 | DS ---
[facility] DISCHARGE SUMMARY Date Patient Seen: Jul 11, 2025 Time of Visit: 1131 Supervising Physician: Dr. ABBASI Primary Care Physician: Dr. Mateo Billingsley Outpatient Specialists: Inpatient Consults: Cardiology neurology PROBLEM LIST: Acute near syncopal episode, resolved Left ICA/CCA suggesting 50% to 69% stenosis per carotid Dopplers 07/09/2025 Class three angina with positive stress test and failed vein graft s/p coronary shock way PTCA and drug eluting stent implant done on 07/04/[address] Iniguez Heart failure reduced ejection fraction 45-50% per echocardiogram 07/09/2025 Possible PFO by color Doppler per echocardiogram 07/09/2025 Diabetes mellitus with hyperglycemia Obese Diabetes mellitus with hyperglycemia Uncontrolled hypertension Gastritis CAD s/p CABG September 21, 2022 Severe three-vessel coronary disease with all three saphenous vein grafts occluded s/p left heart catheterization on 06/18/2025 History of left hip replacement History of umbilical hernia repair x2 HOSPITAL COURSE: HPI (per admitting provider)Ms. Car is a 59-year-old female with a history of CAD, CHF, pleural effusion, sleep apnea, pulmonary, morbid obesity, depression, diabetes-type II, high cholesterol, heart disease and hypertension. The ED prov ider reported the [place] [facility] [place] evaluation of syncopal episode while in the bathroom and that she hit her head. The patient reported that prior to going to going to the restroom she was feeling dizzy and unbalanced. She stated that she looked at the floor and it looked like it was "fluttering" "like waves". She reports that she saw her physician a few days ago for evaluation of left ear itching. She reported that her doctor informed her that her inner ear was red and had an infection therefore gave her some ear drops. She stated that she has been having nasal congestion and was using a nose spray which was changed to Flomax on Tuesday. She reported her left ear still feels muffled/pressure like how it feels when on an airplane. The patient had recent angiogram and was at the [facility] accompanying her for his appointment. The patient stated that the final inspector shuttle evaluated her after the incident and advised to get seen in the ER. Patient was seen and examined by bedside with no family present. Patient is awake alert able to answer simple questions appropriately. Patient denies any chest pain or shortness of breadth. Denies any nausea vomiting or abdominal pain. Patient denies any reoccurrence dizziness or near syncope episodes. Patient has remained hemodynamically stable. Patient has been cleared by Cardiology Neurology for discharge. With recommendations listed below. Instructed patient will be getting discharged today and will need to follow up with PCP within 3-5 days upon discharge , also follow up with Cardiology within 3-5 days upon discharge. Patient voices understanding agrees with plan has no questions at this time The patient was treated for the following problems: ACTIVE PROBLEM LIST FOR THE HOSPITALIZATION: CHRONIC PROBLEMS: continue previous management per PCP unless otherwise indicated [employer] FINDINGS/RECOMMENDATIONS: Cardiology's recommendations I do not think the carotid disease has anything to do with her symptoms. I think she had a Vegotonic episode of hypotension and could be discharged. She has a follow up appointment in my office next week. Neurology's recommendations Plan: - No specific neurological interventions required as examination is normal and episode was likely vasovagal in nature PROCEDURES: as mentioned above DISCHARGE MEDICATIONS: Pt hemodynamically stable and afebrile at time of discharge. PCP notified of patients admission, hospital course and discharge. Continued Medications: Aspirin (Aspirin EC) 81 Mg Tablet.dr 81 MG PO AM, TAB Aspirin (Aspirin EC) 81 Mg Tablet.dr 1 TAB PO DAILY for 30 Days, #30 TAB 0 Refills [calcium plus vit d] () 1 TAB PO BID Cetirizine HCl (Cetirizine HCl) 10 Mg Tab.chew 10 MG PO AM, TAB.CHEW [cinnamon] () 2000 MG PO BID Empagliflozin (Jardiance) 25 Mg Tablet 1 TAB PO DAILY for 30 Days, #30 TAB 0 Refills Evolocumab (Repatha Syringe) 140 Mg/Ml Syringe 140 MG SQ [id number], SYRINGE Evolocumab (Repatha Syringe) 140 Mg/Ml Syringe 1 ML SQ [id number] for 28 Days, #2 ML 0 Refills Ezetimibe (Ezetimibe) 10 Mg Tablet 10 MG PO ACLUNCH, TAB Furosemide (Furosemide) 40 Mg Tablet 1 TAB PO DAILY for 30 Days, #30 TAB 0 Refills Gabapentin (Gabapentin) 100 Mg Capsule 100 MG PO HS, CAP [garlique] () 1 TAB PO AM Glipizide (Glipizide) 5 Mg Tablet 1 TAB PO BID for 30 Days, #60 TAB 0 Refills Magnesium Oxide (Magnesium Oxide) 400 Mg Tablet 1 TAB PO DAILY for 30 Days, #30 TAB 0 Refills Metformin HCl (Metformin HCl) 1,000 Mg Tablet 1 TAB PO BID for 30 Days, #60 TAB 0 Refills Metoprolol Succinate (Metoprolol Succinate) 25 Mg Tab.er.24h 1 TAB PO DAILY for 30 Days, #30 TAB 0 Refills Prasugrel HCl (Prasugrel HCl) 10 Mg Tablet 1 TAB PO DAILY for 30 Days, #30 TAB 0 Refills Rosuvastatin Calcium (Rosuvastatin Calcium) 10 Mg Tablet 2 TAB PO HS for 30 Days, #30 TAB 0 Refills Sacubitril/Valsartan (Entresto 24 mg-26 mg Tablet) 24 Mg-26 Mg Tablet 1 TAB PO BID for 30 Days, #60 TAB 0 Refills Semaglutide (Ozempic) 2 Mg/0.75 Ml (8 Mg/3 Ml) Pen.injctr 1 MG SQ QWEEK for 30 Days, #3 ML 0 Refills Sennosides/Docusate Sodium (Stool Softener-Stimulant Lax) 8.6 Mg-50 Mg Tablet 1 EACH PO HS, TAB Sertraline HCl (Sertraline HCl) 50 Mg Tablet 1 TAB PO DAILY for 30 Days, #30 TAB 0 Refills Spironolactone (Spironolactone) 25 Mg Tablet 1 TAB PO DAILY for 30 Days, #30 TAB 0 Refills Discontinued Medications: Semaglutide (Ozempic) 1 Mg/0.75 Ml (4 Mg/3 Ml) Pen.injctr 1 MG SQ QWEEK for 30 Days, #3 ML 0 Refills PHYSICAL EXAM: GENERAL: Alert, awake oriented x 3 HEENT: EOMI, Sclera non icteric, moist mucosa NECK: Supple, no JVD, trachea midline LUNGS: Clear breath sounds bilaterally. No wheezes HEART: Regular rate and rhythm. Normal S1 and S2, without murmurs ABD: Abdomen soft, nontender. Bowel sounds present. Obese EXT: No clubbing cyanosis or edema NEURO: Alert and oriented to person, follows commands FOLLOW-UP: Follow-up with PCP in 2-3 days Follow up with Cardiology within 3-5 days upon discharge RECOMMENDATIONS: See Discharge Instructions This case was seen and discussed with my supervising physician. 35 minutes spent on discharge process, including evaluation of the patient, discussion with nurs ing staff, medication reconciliation and follow-up appointments KANDICE SHORT FITTER MACHINIST Jul 11, 2025 15:59
--- NOTE | 2025-07-11 17:31 | NUR ---
PT sitting in bed w/ eyes open A&Ox4 able to make needs known, denies pain or discomfort. Discharge instructions given to PT and family @ bedside written and verbally. I.V. removed intact w/o complications. PT escorted to POV via WC by SERVICE PARTS COORDINATOR w/o complications.
== END 2025-07-11 17:37 | disposition home or self-care (01) ==
LOC: EDH 16:31 → EDHIP 19:11 → 4DH 07-09 16:50
PROVIDERS: ADMIT Internal Medicine; ATTEND Internal Medicine
DX: R55 Syncope and collapse (principal); E11.65 Type 2 diabetes mellitus with hyperglycemia; I11.0 Hypertensive heart disease with heart failure; I50.22 Chronic systolic (congestive) heart failure; I25.10 Atherosclerotic heart disease of native coronary artery without angina pectoris; E78.00 Pure hypercholesterolemia, unspecified; K29.70 Gastritis, unspecified, without bleeding; N17.9 Acute kidney failure, unspecified; E66.01 Morbid (severe) obesity due to excess calories; F32.A Depression, unspecified; Z95.1 Presence of aortocoronary bypass graft; Z68.37 Body mass index [BMI] 37.0-37.9, adult; Z79.899 Other long term (current) drug therapy; Z20.822 Contact with and (suspected) exposure to COVID-19; Z98.890 Other specified postprocedural states
CPT/HCPCS: 99284; 83036; 80076; 84484 ×2; 80048 ×2; 83880; 85025; 85610; 85730; 82948 ×12; 36415 ×2; 71045; 70450; 72125; 93880; 93005 ×2; 81001; 84443; 83735; 84100; 80305; 85027; 87880; 87804 ×2; 87635; 70496; 70498; 93306; 93356; J1815 ×4; G0378 ×70; Q9967

== ENCOUNTER → 2025-09-02 | Outpatient (CLI) | payer OTHER ==
[~2025-09-02] MED LIST changes: -FLUT16H NASAL; +GLIP5TAB15 PO; -MAGN400T51 PO; +MAGN400T53 PO; +ROSU10TA98 PO; -ROSU20TA98 PO
--- NOTE | 2025-09-02 22:49 | HMCIMG ---
EXAM: CR LUMBAR SPINE, 3 VIEWS CLINICAL HISTORY: Low back pain. COMPARISON: None provided TECHNIQUE: Three views of the lumbar spine were obtained. FINDINGS: Vertebral alignment: There is preservation of the normal lumbar lordosis. Vertebrae and included pelvic bones: Reduced bone density. Preserved vertebral body heights. No fracture. Internal fixation of left acetabulum. No prosthetic break or baldomero-prosthetic lucency. Posterior elements intact. Discs: Multilevel osteophytes are seen in thoracolumbar spine, most pronounced at L4 and L5 Reduced disc heights are seen most pronounced at L3-4, L4-5 and L5-S1 levels. Included abdomen: No pathologic calcifications observed. Included bowel gas pattern is non-obstructive. Vascular calcifications of aorta seen. IMPRESSION: 1. Lumbar spondylosis with most pronounced findings are L3-4, L4-5 and L5-S1 levels. 2. Left acetabular fixator without any break or baldomero-prosthetic lucency. 3. Osteopenia. /[place]
== END | disposition home or self-care (01) ==
LOC: RAH 13:02
PROVIDERS: ATTEND Internal Medicine
DX: M47.817 Spondylosis without myelopathy or radiculopathy, lumbosacral region (principal); M85.88 Other specified disorders of bone density and structure, other site; M25.78 Osteophyte, vertebrae; M51.370 Other intervertebral disc degeneration, lumbosacral region with discogenic back pain only
CPT/HCPCS: 72100